=== PATIENT | female | born 1980 | race African-American/Black ===

== ENCOUNTER 2017-01-25 14:35 | Emergency (ER) | payer OTHER, MEDICAID ==
--- NOTE | 2017-01-25 16:06 | ER Document Report ---
ED General - General Chief Complaint: Numbness of Arm Stated Complaint: ARM NUMBNESS,BACK PAIN Mode of Arrival: Ambulatory Information source: Patient Notes: 36-year-old female presents with daughter with complaints of neck pain low back pain left shoulder pain and numbness down the left arm and left leg. Patient denies any weakness. She has a history of arthritis which irritates her back. Patient denies any cauda equina concerns otherwise. Patient notes symptoms have been ongoing for 3 days TRAVEL OUTSIDE OF THE [place] IN LAST 30 DAYS: No - HPI Onset: Other - 3 days Onset/Duration: Persistent Quality of pain: Achy Severity: Mild Pain Level: 1 Associated symptoms: Chest pain Exacerbated by: Denies Relieved by: Denies Similar symptoms previously: Yes Recently seen / treated by doctor: Yes - Related Data Allergies/Adverse Reactions: wheat [Wheat] Allergy (Intermediate, Verified 06/22/15 15:13) GI upset morphine [Morphine] Allergy (Verified 06/22/15 15:13) milk [Milk] Adverse Reaction (Verified 06/22/15 15:13) Past Medical History - Social History Smoking Status: Never Smoker Cigarette use (# per day): No Chew tobacco use (# tins/day): No Smoking Education Provided: No Family History: Reviewed & Not Pertinent, Arthritis, CAD, CVA, DM, Hyperlipidemia, Hypertension, Malignancy, Thyroid Disfunction Patient has suicidal ideation: No Patient has homicidal ideation: No - Past Medical History Cardiac Medical History: Denies: Hx DVT, Hx Hypertension Pulmonary Medical History: Denies: Hx COPD, Hx Tuberculosis Neurological Medical History: Reports: Hx Migraine. Denies: Hx Seizures Endocrine Medical History: Denies: Hx Diabetes Mellitus Type 1, Hx Diabetes Mellitus Type 2, Hx Hyperthyroidism Renal/ Medical History: Reports: Hx Kidney Stones. Denies: Hx Ovarian Cysts, Hx Peritoneal Dialysis, Hx Pelvic Inflammatory Disease GI Medical History: Reports: Hx Crohn's Disease - Strictures, Hx Gastroesophageal Reflux Disease Musculoskeltal Medical History: Reports Hx Arthritis - Rheumatoid, Reports Hx Fibromyalgia Skin Medical History: Reports Hx MRSA Psychiatric Medical History: Reports: Hx Depression Past Surgical History: Reports: Hx Cholecystectomy, Hx Orthopedic Surgery - Right knee. Denies: Hx Hysterectomy, Hx Pacemaker - Immunizations Immunizations up to date: Yes Hx Diphtheria, Pertussis, Tetanus Vaccination: Yes Review of Systems - Review of Systems Notes: REVIEW OF SYSTEMS: CONSTITUTIONAL : Denies fever, chills, or sweats. Denies recent illness. EENT: Denies eye, ear, throat, or mouth pain or symptoms. Denies nasal or sinus congestion or discharge. Denies throat, tongue, or mouth swelling or difficulty swallowing. CARDIOVASCULAR: Denies chest pain. Denies palpitations or racing or irregular heart beat. Denies ankle edema. RESPIRATORY: Denies cough, cold, or chest congestion. Denies shortness of breath, difficulty breathing, or wheezing. GASTROINTESTINAL: Denies abdominal pain or distention. Denies nausea, vomiting , or diarrhea. Denies blood in vomitus, stools, or per rectum. Denies black, tarry stools. Denies constipation. GENITOURINARY: Denies difficulty urinating, painful urination, burning, frequency, blood in urine, or discharge. FEMALE GENITOURINARY: Denies vaginal bleeding, heavy or abnormal periods, irregular periods. Denies vaginal discharge or odor. MUSCULOSKELETAL: Admits to neck pain left arm numbness low back pain left leg numbness SKIN: Denies rash, lesions or sores. HEMATOLOGIC : Denies easy bruising or bleeding. LYMPHATIC: Denies swollen, enlarged glands. NEUROLOGICAL: Subjective paresthesia PSYCHIATRIC: Denies anxiety or stress. Denies depression, suicidal ideation, or homicidal ideation. ALL OTHER SYSTEMS REVIEWED AND NEGATIVE. Dictation was performed using [employer] voice recognition software PHYSICAL EXAMINATION: GENERAL: Well-appearing, well-nourished and in no acute distress. HEAD: Atraumatic, normocephalic. EYES: Pupils equal round and reactive to light, extraocular movements intact, conjunctiva are normal. ENT: Nares patent, oropharynx clear without exudates. Moist mucous membranes. NECK: Normal range of motion, supple without lymphadenopathy LUNGS: Breath sounds clear to auscultation bilaterally and equal. No wheezes rales or rhonchi. HEART: Regular rate and rhythm without murmurs ABDOMEN: Soft, nontender, nondistended abdomen. No guarding, no rebound. No masses appreciated. Female : deferred Musculoskeletal: Normal range of motion, no pitting or edema. No cyanosis. NEUROLOGICAL: Cranial nerves grossly intact. Normal speech, normal gait. Normal sensory, motor exams except for subjective paresthesia PSYCH: Normal mood, normal affect. SKIN: Warm, Dry, normal turgor, no rashes or lesions noted. Course - Re-evaluation Re-evalutation: 01/25/17 16:09 Patient has no cauda equina concerns, she has no signs of mass or IV drug use, I believe the patient's symptoms may be secondary to nerve impingement given her history of arthritis 01/25/17 17:09 EKG noted no significant abnormality, I have very low suspicion for cauda equina or any life-threatening issues. Patient will be started on steroids otherwise well-appearing no distress patient to follow-up with her own primary care physician for further evaluation and care After performing a Medical Screening Examination, I estimate there is LOW risk for EXPANDING OR RUPTURED ABDOMINAL AORTIC ANEURYSM, CAUDA EQUINA SYNDROME, EPIDURAL MASS LESION, or HERNIATED DISK CAUSING SEVERE SPINAL STENOSIS, thus I consider the discharge disposition reasonable. I have reevaluated this patient multiple times and no significant life threatening changes are noted. The patient and I have discussed the diagnosis and risks, and we agree with discharging home and close follow-up. We also discussed returning to the Emergency Department immediately if new or worsening symptoms occur with the understanding that symptoms and presentations can change. We have discussed the symptoms which are most concerning (e.g., saddle anesthesia, urinary or bowel incontinence or retention, changing or worsening pain) that necessitate immediate return. Discharge - Discharge Clinical Impression: Paresthesia, Arthritis Condition: Stable Disposition: HOME, SELF-CARE Instructions: Numbness or Paresthesia ([facility]) Prescriptions: Prednisone [Deltasone 20 mg Tablet] 3 tab PO DAILY 5 Days Referrals: GILL ARRIAZA MD [ACTIVE STAFF] - Follow up tomorrow
[2017-01-25 17:25] VITALS: BP 112/74
--- NOTE | 2017-01-25 21:39 | EKG REPORT ---
SEVERITY:- BORDERLINE ECG - SINUS RHYTHM BORDERLINE T ABNORMALITIES, ANTERIOR LEADS : Confirmed by: Kel Abbasi 25-Jan-2017 21:38:19
== END 2017-01-25 17:24 | disposition home or self-care (01) ==
LOC: ER 14:35
DX: R20.0 Anesthesia of skin (principal); M19.90 Unspecified osteoarthritis, unspecified site; M54.2 Cervicalgia; M54.5 Low back pain; M25.512 Pain in left shoulder; Z88.6 Allergy status to analgesic agent; Z91.011 Allergy to milk products; Z87.442 Personal history of urinary calculi; Z90.49 Acquired absence of other specified parts of digestive tract; Z86.14 Personal history of Methicillin resistant Staphylococcus aureus infection
CPT/HCPCS: 93005; 93010; 99284

== ENCOUNTER 2017-09-27 07:16 | Emergency (ER) | payer MEDICAID, OTHER ==
[2017-09-27] MEDS ORDERED: NORMAL SALINE 1000 ML 1,000 ML IV ONE (07:40)
--- NOTE | 2017-09-27 07:40 | ER Document Report ---
ED GI/ - General Chief Complaint: Nausea/Vomiting Stated Complaint: VOMITING, ABDOMINAL/BACK PAIN Time Seen by Provider: 09/27/17 07:39 Mode of Arrival: Ambulatory Information source: Patient Notes: 37 yo female c/o epigastric abdominal pain that radiates through to the back and nausea since yesterday. She had dull all day until 10:00 last night became more for severe and at 4 AM she could not stand it anymore. She has a history of Crohn's , cholecystectomy, kidney stones. No fever, no diarrhea. No hx pancreatitis. No blood or black in bowel movements. TRAVEL OUTSIDE OF THE [place] IN LAST 30 DAYS: No - Related Data Allergies/Adverse Reactions: wheat [Wheat] Allergy (Intermediate, Verified 09/27/17 07:19) GI upset morphine [Morphine] Allergy (Verified 09/27/17 07:19) milk [Milk] Adverse Reaction (Verified 09/27/17 07:19) Past Medical History - General Information source: Patient - Social History Smoking Status: Unknown if Ever Smoked Frequency of alcohol use: None Drug Abuse: None Lives with: Family Family History: Reviewed & Not Pertinent, Arthritis, CAD, CVA, DM, Hyperlipidemia, Hypertension, Malignancy, Thyroid Disfunction Neurological Medical History: Reports: Hx Migraine Renal/ Medical History: Reports: Hx Kidney Stones GI Medical History: Reports: Hx Crohn's Disease - Strictures, Hx Gastroesophageal Reflux Disease Musculoskeltal Medical History: Reports Hx Arthritis - Rheumatoid, Reports Hx Fibromyalgia Skin Medical History: Reports Hx MRSA Psychiatric Medical History: Reports: Hx Depression Past Surgical History: Reports: Hx Cholecystectomy, Hx Orthopedic Surgery - Right knee. Denies: Hx Hysterectomy, Hx Pacemaker - Immunizations Immunizations up to date: Yes Hx Diphtheria, Pertussis, Tetanus Vaccination: Yes Review of Systems - Review of Systems Constitutional: No symptoms reported EENT: No symptoms reported Cardiovascular: No symptoms reported Respiratory: No symptoms reported Gastrointestinal: See HPI Genitourinary: No symptoms reported Female Genitourinary: No symptoms reported Musculoskeletal: No symptoms reported Skin: No symptoms reported Hematologic/Lymphatic: No symptoms reported Neurological/Psychological: No symptoms reported Physical Exam - Vital signs Vitals: Temp Pulse Resp BP Pulse Ox 98.6 F 76 18 118/68 99 09/27/17 07:22 09/27/17 07:22 09/27/17 07:22 09/27/17 07:22 09/27/17 07:22 Interpretation: Normal - General General appearance: Appears well, Alert - HEENT Head: Normocephalic, Atraumatic Eyes: Normal Pupils: PERRL - Respiratory Respiratory status: No respiratory distress Chest status: Nontender Breath sounds: Normal Chest palpation: Normal - Cardiovascular Rhythm: Regular Heart sounds: Normal auscultation Murmur: No - Abdominal Inspection: Normal Distension: No distension Bowel sounds: Normal Tenderness: Tender - Epigastrium mid left upper quadrant Organomegaly: No organomegaly - Back Back: Normal, Nontender - Extremities General upper extremity: Normal inspection, Nontender, Normal color, Normal ROM , Normal temperature General lower extremity: Normal inspection, Nontender, Normal color, Normal ROM , Normal temperature, Normal weight bearing. No: Kaushik's sign - Neurological Neuro grossly intact: Yes Cognition: Normal Orientation: AAOx4 [place] Coma Scale Eye Opening: Spontaneous Ericka Coma Scale Verbal: Oriented Ericka Coma Scale Motor: Obeys Commands [place] Coma Scale Total: 15 Speech: Normal Motor strength normal: LUE, RUE, LLE, RLE Sensory: Normal - Psychological Associated symptoms: Normal affect, Normal mood - Skin Skin Temperature: Warm Skin Moisture: Dry Skin Color: Normal Course - Re-evaluation Re-evalutation: 09/27/17 09:09 Zofran 8 mg ODT and GI cocktail given because of where she is tender. Difficulty finding IV, patient states she usually has to get a neck IV. The labs are normal including a lipase so we will get her to drink oral fluids should be able to go home. 09/27/17 09:29 Stomach feels bubbly now she has not had any vomiting here. IV inserted 09/27/17 10:17 Patient is reluctant to go home because she states she still has upper abdominal pain she has been up to the bathroom several times her IV has infused she states that Zofran does not work she wants a prescription for Phenergan and I advised her that the pharmacies are not open at this time but she says "it is what it is" and she will go home. - Vital Signs Vital signs: Temp Pulse Resp BP Pulse Ox 98.6 F 76 18 118/68 99 09/27/17 07:22 09/27/17 07:22 09/27/17 07:22 09/27/17 07:22 09/27/17 07:22 - Laboratory Result Diagrams: 09/27/17 07:50 09/27/17 07:50 Laboratory results interpreted by me: 09/27/17 09/27/17 09/27/17 07:50 07:50 08:40 Hgb 11.7 L Hct 35.5 L Seg Neutrophils % 84.2 H Lymphocytes % 10.6 L Absolute Neutrophils 8.6 H BUN 6 L Glucose 117 H Urine Urobilinogen 2.0 H Discharge - Discharge Clinical Impression: Epigastric abdominal pain, Nausea Condition: Good Disposition: HOME, SELF-CARE Instructions: Acid-Suppressing Medication ([facility]), Evaluation of Upper Abdominal Pain ([facility]), Antinausea Medication ([facility]) Additional Instructions: Drink plenty of fluids to remain hydrated today and advance diet as tolerated [id number] Tums Return to the emergency room for worsening pain, fever, vomiting or diarrhea. Prescriptions: Promethazine HCl [Phenergan 25 mg Tablet] 25 mg PO Q4HP PRN #20 tablet PRN Reason: Famotidine [Pepcid 40 mg Tablet] 40 mg PO DAILY #30 tablet Referrals: ARIEL MORTON MD [ACTIVE STAFF] - Follow up as needed
[2017-09-27 08:07] LABS: ABSOLUTE BASOPHILS # (AUTO) 0.1 10^3/uL (0.0-0.2); ABSOLUTE LYMPHOCYTES (AUTO) 1.1 10^3/uL (0.5-4.7); ABSOLUTE MONOCYTES (AUTO) 0.5 10^3/uL (0.1-1.4); ABSOLUTE NEUT (AUTO) 8.6 10^3/uL (1.7-8.2); BASOPHILS % (AUTO) 0.5 % (0-2); EOSINOPHILS % (AUTO) 0.2 % (0-6); HEMATOCRIT 35.5 % (36.0-47.0); HEMOGLOBIN 11.7 g/dL (12.0-15.5); HGB HCT DIFFERENCE -0.4; LYMPHOCYTES % (AUTO) 10.6 % (13-45); MEAN CORPUSCULAR HEMOGLOBIN 28.1 pg (27.0-33.4); MEAN CORPUSCULAR HGB CONC 33.1 g/dL (32.0-36.0); MEAN CORPUSCULAR VOLUME 85 fl (80-97); MONOCYTES % (AUTO) 4.5 % (3-13); RED BLOOD COUNT 4.19 10^6/uL (3.72-5.28); RED CELL DISTRIBUTION WIDTH 13.5 % (11.5-14.0); SEGMENTED NEUTROPHILS % (AUTO) 84.2 % (42-78); WHITE BLOOD COUNT 10.2 10^3/uL (4.0-10.5)
[2017-09-27] MEDS ORDERED: ONDANSETRON HCL INJ/PF 4 MG/2 ML SDV IV ONE (08:14)
[2017-09-27] MEDS ORDERED: HYDROMORPHONE HCL INJ/PF 2 MG/ML AMPULE IV ONE (08:21)
[2017-09-27 08:27] LABS: ALANINE AMINOTRANSFERASE 23 U/L (9-52); ALBUMIN 4.1 g/dL (3.5-5.0); ALKALINE PHOSPHATASE 67 U/L (38-126); ANION GAP 9 (5-19); ASPARTATE AMINO TRANSFERASE 25 U/L (14-36); BILIRUBIN,DIRECT 0.3 mg/dL (0.0-0.4); BILIRUBIN,TOTAL 0.5 mg/dL (0.2-1.3); BLOOD UREA NITROGEN 6 mg/dL (7-20); CALCIUM 9.9 mg/dL (8.4-10.2); CARBON DIOXIDE 27 mmol/L (22-30); CHLORIDE 104 mmol/L (98-107); CREATININE RESULT 0.76 mg/dL (0.52-1.25); GLUCOSE 117 mg/dL (75-110); LIPASE 39.1 U/L (23-300); POTASSIUM 4.5 mmol/L (3.6-5.0); SODIUM 139.6 mmol/L (137-145); TOTAL PROTEIN 7.1 g/dL (6.3-8.2)
[2017-09-27] MEDS ORDERED: MAG HYDROX/AL HYDROX/SIMETH SUSP 30 ML UDCUP ONE (08:57)
[2017-09-27] MEDS ORDERED: METOCLOPRAMIDE HCL ORAL SOLN 10 MG/10 ML UDCUP PO ONE (08:58)
[2017-09-27] MEDS ORDERED: LIDOCAINE 2% VISCOUS SOLN 20 ML UDCUP PO ONE (08:59)
[2017-09-27] MEDS ORDERED: ONDANSETRON 4 MG TAB.RAPDIS ONE (09:06)
[2017-09-27] MEDS ORDERED: LANSOPRAZOLE 30 MG TAB.RAP.DR PO ONE (09:10)
[2017-09-27] MEDS ORDERED: FAMOTIDINE 20 MG TABLET PO ONE (09:10)
[2017-09-27] MEDS ORDERED: MAG HYDROX/AL HYDROX/SIMETH SUSP 30 ML UDCUP PO ONE (09:30)
[2017-09-27] MEDS ORDERED: ONDANSETRON 4 MG TAB.RAPDIS PO ONE (09:36)
[2017-09-27 09:46] LABS: APPEARANCE,URINE SLIGHTLY-CLOUDY; BILIRUBIN,URINE NEGATIVE (NEGATIVE); GLUCOSE, URINE NEGATIVE (NEGATIVE); KETONES,URINE NEGATIVE (NEGATIVE); LEUKOCYTE ESTERASE,URINE NEGATIVE (NEGATIVE); NITRITE,URINE NEGATIVE (NEGATIVE); PROTEIN,URINE NEGATIVE (NEGATIVE)
[2017-09-27 10:37] VITALS: BP 115/65
== END 2017-09-27 10:40 | disposition home or self-care (01) ==
LOC: ER 07:16
DX: R10.13 Epigastric pain (principal); R11.2 Nausea with vomiting, unspecified; Z87.442 Personal history of urinary calculi; Z87.19 Personal history of other diseases of the digestive system; Z90.49 Acquired absence of other specified parts of digestive tract; Z91.018 Allergy to other foods; Z91.011 Allergy to milk products; Z88.5 Allergy status to narcotic agent; Z86.14 Personal history of Methicillin resistant Staphylococcus aureus infection
CPT/HCPCS: 99283; 96361; 96374; 96375; 36415; 87086; 83690; 84703; 85025; 80053; 81001; S0119; J3490; J1170; J2405; J7030

== ENCOUNTER 2018-03-08 19:00 | Emergency (ER) | payer MEDICAID, OTHER ==
--- NOTE | 2018-03-08 19:44 | ER Document Report ---
ED General - General Chief Complaint: Leg Swelling Stated Complaint: LEG PAIN, SWELLING Time Seen by Provider: 03/08/18 19:22 Mode of Arrival: Ambulatory Information source: Patient Notes: 37-year-old female patient presents with complaints of pain and swelling to her left lower extremity. Patient reports that she has not had any trauma to the area. Patient also reports that she has been getting a lot of cramps in both of her legs. Today patient felt dizzy while she was out shopping. Patient has past medical history of fibromyalgia, Crohn's and rheumatoid arthritis. Patient is a non-smoker, does not take any control pills (HAS A MIRENA) has had no recent surgery and has had no recent travel. TRAVEL OUTSIDE OF THE [place] IN LAST 30 DAYS: No - Related Data Allergies/Adverse Reactions: wheat [Wheat] Allergy (Intermediate, Verified 09/27/17 07:19) GI upset morphine [Morphine] Allergy (Verified 09/27/17 07:19) milk [Milk] Adverse Reaction (Verified 09/27/17 07:19) Past Medical History - General Information source: Patient - Social History Smoking Status: Never Smoker Frequency of alcohol use: None Drug Abuse: None - In February Family History: Reviewed & Not Pertinent, Arthritis, CAD, CVA, DM, Hyperlipidemia, Hypertension, Malignancy, Thyroid Disfunction Patient has suicidal ideation: No Patient has homicidal ideation: No - Past Medical History Cardiac Medical History: Denies: Hx DVT, Hx Hypertension Pulmonary Medical History: Denies: Hx COPD, Hx Tuberculosis Neurological Medical History: Reports: Hx Migraine. Denies: Hx Seizures Endocrine Medical History: Denies: Hx Diabetes Mellitus Type 1, Hx Diabetes Mellitus Type 2, Hx Hyperthyroidism Renal/ Medical History: Reports: Hx Kidney Stones. Denies: Hx Ovarian Cysts, Hx Peritoneal Dialysis, Hx Pelvic Inflammatory Disease GI Medical History: Reports: Hx Crohn's Disease - Strictures, Hx Gastroesophageal Reflux Disease Musculoskeltal Medical History: Reports Hx Arthritis - Rheumatoid, Reports Hx Fibromyalgia Skin Medical History: Reports Hx MRSA Psychiatric Medical History: Reports: Hx Depression Past Surgical History: Reports: Hx Cholecystectomy, Hx Orthopedic Surgery - Right knee. Denies: Hx Hysterectomy, Hx Pacemaker - Immunizations Immunizations up to date: Yes Hx Diphtheria, Pertussis, Tetanus Vaccination: Yes Review of Systems - Review of Systems Constitutional: See HPI EENT: No symptoms reported Cardiovascular: No symptoms reported Respiratory: No symptoms reported Gastrointestinal: No symptoms reported Genitourinary: No symptoms reported Female Genitourinary: No symptoms reported Musculoskeletal: See HPI Skin: No symptoms reported Hematologic/Lymphatic: No symptoms reported Neurological/Psychological: No symptoms reported Physical Exam - Vital signs Vitals: Temp Pulse Resp BP Pulse Ox 99.5 F 88 20 123/72 100 03/08/18 19:09 03/08/18 19:09 03/08/18 19:09 03/08/18 19:09 03/08/18 19:09 - Notes Notes: PHYSICAL EXAMINATION: GENERAL: Well-appearing, well-nourished and in no acute distress. HEAD: Atraumatic, normocephalic. EYES: Pupils equal round and reactive to light, extraocular movements intact, conjunctiva are normal. ENT: Nares patent, oropharynx clear without exudates. Moist mucous membranes. NECK: Normal range of motion, supple without lymphadenopathy LUNGS: Breath sounds clear to auscultation bilaterally and equal. No wheezes rales or rhonchi. HEART: Regular rate and rhythm without murmurs ABDOMEN: Soft, nontender, nondistended abdomen. No guarding, no rebound. No masses appreciated. Female : deferred Musculoskeletal: Normal range of motion, no pitting, mild edema to LLE with two areas of ecchymosis. No cyanosis. NEUROLOGICAL: Cranial nerves grossly intact. Normal speech, normal gait. Normal sensory, motor exams PSYCH: Normal mood, normal affect. SKIN: Warm, Dry, normal turgor, no rashes or lesions noted. Course - Re-evaluation Re-evalutation: 37-year-old otherwise healthy well appearing female with normal vital signs complaining of left lower extremity cramping, pain and swelling as well as dizziness. Will draw a comprehensive metabolic panel to rule out any electrolyte abnormality that could be contributing to her leg cramps as well as a venous doppler to rule out DVT although I have a low suspicion as patient does not have any risk factors. CMP and venous doppler U/S are both unremarkable. Will d/c patient with instructions to wear compression hose and follow up with her primary. - Vital Signs Vital signs: Temp Pulse Resp BP Pulse Ox 98.9 F 71 16 107/64 100 03/08/18 21:44 03/08/18 21:44 06/05/18 21:44 03/08/18 21:44 03/08/18 21:44 - Laboratory Result Diagrams: 03/08/18 20:25 Laboratory results interpreted by me: 03/08/18 20:25 BUN 6 L Discharge - Discharge Clinical Impression: Varicose vein of leg Condition: Stable Disposition: HOME, SELF-CARE Additional Instructions: Varicose Veins You have varicose veins. These are veins that bulge out under the skin. They develop when the valves in the veins fail. These valves normally keep blood moving upstream towards the heart. Without the valves, the pressure of the blood expands and weakens the veins. Varicose veins may simply be unsightly. But often they cause aching pains in the legs, especially after standing. There may be itching and irritation. Occasionally a vein may become clotted, with redness, tenderness, and swelling. Elevate your legs periodically during the day. Support hose can help. Don' t rub or scratch at bulging veins -- this makes them worse. Don't sit with your legs crossed. Avoid standing in one place for more than a few minutes. Walking reduces the pressure in the veins. If varicose veins continue to cause severe symptoms, an operation to remove them ("vein stripping") might help. Call the doctor or return if there is increased swelling, redness, or fever , if there is general leg pain, or if a varicose veins bleeds and won't stop after 15 minutes of direct pressure. Referrals: RENETTA MAGANA MD [Primary Care Provider] - Follow up as needed
[2018-03-08 21:08] LABS: ALANINE AMINOTRANSFERASE 21 U/L (9-52); ALBUMIN 3.6 g/dL (3.5-5.0); ALKALINE PHOSPHATASE 58 U/L (38-126); ANION GAP 8 (5-19); ASPARTATE AMINO TRANSFERASE 22 U/L (14-36); BILIRUBIN,DIRECT 0.3 mg/dL (0.0-0.4); BILIRUBIN,TOTAL 0.3 mg/dL (0.2-1.3); BLOOD UREA NITROGEN 6 mg/dL (7-20); CALCIUM 9.3 mg/dL (8.4-10.2); CARBON DIOXIDE 30 mmol/L (22-30); CHLORIDE 102 mmol/L (98-107); GLUCOSE 89 mg/dL (75-110); POTASSIUM 4.4 mmol/L (3.6-5.0); TOTAL PROTEIN 6.7 g/dL (6.3-8.2)
[2018-03-08 21:46] VITALS: BP 107/64
--- NOTE | 2018-03-09 07:05 | XCELERA REPORT ---
[address] [address] Lower Extremity Venous Evaluation Name: CINDY BRAY Age: 37 yrs Gender: Female : 1980 Patient Status: Emergency Patient Location: ER Study Date: 03/08/2018 08:47 PM Procedure: Color flow and duplex imaging of the veins of the left lower extremity as well as the right Common Femoral vein. Reason For Study: LLE swelling and pain Ordering Physician: OLIVE REY Performed By: Maryam Velarde Right Sided Venous Evaluation The right common femoral vein is fully compressible. Spontaneous and phasic flow is present in the right common femoral vein. Left Sided Venous Evaluation Normal vessel filling wall to wall, compression and augmentation as well as Colour flow down to the infrageniculate veins. Interpretation Summary No duplex evidence of DVT or obstruction in the left lower extremity nor in the right Common Femoral vein. : OLIVE RYE > Antoine Farley
== END 2018-03-08 21:44 | disposition home or self-care (01) ==
LOC: ER 19:00
DX: I83.812 Varicose veins of left lower extremity with pain (principal); R25.2 Cramp and spasm; R42 Dizziness and giddiness; Z97.5 Presence of (intrauterine) contraceptive device; Z91.018 Allergy to other foods; Z88.5 Allergy status to narcotic agent
CPT/HCPCS: 36415; 80053; 93971; 99284

== ENCOUNTER 2018-08-15 17:14 | Emergency (ER) | payer MEDICAID ==
[2018-08-15] MEDS ORDERED: DIAZEPAM 5 MG TABLET PO ONE (19:13)
[2018-08-15] MEDS ORDERED: LIDOCAINE 5% (700 MG) TRANSDERMAL ADH..PATCH TP ONE (19:13)
[2018-08-15] MEDS ORDERED: DEXAMETHASONE SOD PHOS INJ 10 MG/1 ML VIAL IM ONE (19:13)
[2018-08-15] MEDS ORDERED: KETOROLAC TROMETHAMINE 60 MG/2 ML SDV IM ONE (19:13)
[2018-08-15 19:59] LABS: APPEARANCE,URINE SLIGHTLY-CLOUDY; BILIRUBIN,URINE NEGATIVE (NEGATIVE); COLOR,URINE YELLOW; GLUCOSE, URINE NEGATIVE (NEGATIVE); KETONES,URINE NEGATIVE (NEGATIVE); LEUKOCYTE ESTERASE,URINE NEGATIVE (NEGATIVE); NITRITE,URINE NEGATIVE (NEGATIVE); PROTEIN,URINE NEGATIVE (NEGATIVE); URINE SPECIFIC GRAVITY 1.017; UROBILINOGEN,URINE NEGATIVE mg/dL (<2.0)
--- NOTE | 2018-08-15 20:37 | ER Document Report ---
HPI - HPI Pain Level: 5 Notes: Patient is a 38-year-old female who presents with chief complaint of neck and back pain that is been going on for 2 days. Patient reports she has been doing increased activity and heavy lifting lately. Patient thinks she may have strained a muscle. Patient denies any fever. Denies any bowel incontinence, states she is able to urinate without difficulty. - NEURO Neurology: REPORTS: Headache - REPRODUCTIVE Reproductive: DENIES: : Past Medical History - General Information source: Patient - Social History Smoking Status: Never Smoker Chew tobacco use (# tins/day): No Frequency of alcohol use: None Drug Abuse: None Family History: Reviewed & Not Pertinent, Arthritis, CAD, CVA, DM, Hyperlipidemia, Hypertension, Malignancy, Thyroid Disfunction Patient has suicidal ideation: No Patient has homicidal ideation: No - Past Medical History Cardiac Medical History: Denies: Hx DVT, Hx Hypertension Pulmonary Medical History: Denies: Hx COPD, Hx Tuberculosis Neurological Medical History: Reports: Hx Migraine. Denies: Hx Seizures Endocrine Medical History: Denies: Hx Diabetes Mellitus Type 1, Hx Diabetes Mellitus Type 2, Hx Hyperthyroidism Renal/ Medical History: Reports: Hx Kidney Stones. Denies: Hx Ovarian Cysts, Hx Peritoneal Dialysis, Hx Pelvic Inflammatory Disease GI Medical History: Reports: Hx Crohn's Disease - Strictures, Hx Gastroesophageal Reflux Disease Musculoskeletal Medical History: Reports Hx Arthritis - Rheumatoid, Reports Hx Fibromyalgia Skin Medical History: Reports Hx MRSA Psychiatric Medical History: Reports: Hx Depression Past Surgical History: Reports: Hx Cholecystectomy, Hx Orthopedic Surgery - Right knee. Denies: Hx Hysterectomy, Hx Pacemaker - Immunizations Immunizations up to date: Yes Hx Diphtheria, Pertussis, Tetanus Vaccination: Yes Vertical Provider Document - CONSTITUTIONAL Notes: PHYSICAL EXAMINATION: GENERAL: Well-appearing, well-nourished and in no acute distress. HEAD: Atraumatic, normocephalic. EYES: Pupils equal round extraocular movements intact, conjunctiva are normal. ENT: Nares patent NECK: Normal range of motion LUNGS: No respiratory distress Musculoskeletal: Normal range of motion, tenderness to palpation to right lumbar paraspinous muscles as well as pain over the right scapula. NEUROLOGICAL: Normal speech, normal gait. PSYCH: Normal mood, normal affect. SKIN: Warm, Dry, normal turgor, no rashes or lesions noted. - INFECTION CONTROL TRAVEL OUTSIDE OF THE [place] IN LAST 30 DAYS: No Course - Re-evaluation Re-evalutation: Patient's examination and history are most consistent with musculoskeletal strain. Patient will be treated symptomatically discharged in stable condition. - Vital Signs Vital signs: Temp Pulse Resp BP Pulse Ox 98.3 F 73 18 117/71 100 08/15/18 17:32 08/15/18 17:32 08/15/18 17:32 08/15/18 17:32 08/15/18 17:32 Discharge - Discharge Clinical Impression: Neck pain, Musculoskeletal pain Condition: Stable Disposition: HOME, SELF-CARE Additional Instructions: Believe your pain is most likely being caused by a musculoskeletal strain. Please take the medications as prescribed. You should also take some ibuprofen 600 mg every 6 hours. This will help with not only pain but inflammation. Call your orthopedic doctor who does her trigger point injections tomorrow morning to try to get your appointment changed. Return to the emergency department immediately if you develop any bowel incontinence, you are unable to urinate, you have numbness and tingling in both her legs or unable to walk or you develop a fever. Prescriptions: Cyclobenzaprine HCl [Flexeril 10 mg Tablet] 10 mg PO TIDP PRN #15 tab PRN Reason: Lidocaine [Lidoderm 5% (700 mg) Transdermal Patch] 1 patch TP DAILY #30 adh..patch Referrals: RENETTA MAGANA MD [Primary Care Provider] - Follow up as needed
[2018-08-15 20:50] VITALS: BP 109/62
== END 2018-08-15 20:49 | disposition home or self-care (01) ==
LOC: ER 17:14
DX: M54.2 Cervicalgia (principal); M79.10 Myalgia, unspecified site; M54.9 Dorsalgia, unspecified; Z87.442 Personal history of urinary calculi; Z86.14 Personal history of Methicillin resistant Staphylococcus aureus infection; Z90.49 Acquired absence of other specified parts of digestive tract
CPT/HCPCS: 99283; 96372; 81001; J3490 ×2; J1885; J1100

== ENCOUNTER 2018-10-26 10:06 | Emergency (ER) | payer MEDICAID ==
[2018-10-26 10:12] VITALS: BP 116/72
--- NOTE | 2018-10-26 10:34 | ER Document Report ---
ED Medical Screen (RME) - General Chief Complaint: Numbness Stated Complaint: WEAKNESS Time Seen by Provider: 10/26/18 10:28 Primary Care Provider: RENETTA MAGANA MD [Primary Care Provider] - Follow up as needed Notes: 38-year-old female patient with a several day history of multiple complaints including right-sided numbness, right-sided weakness, tired, weak, right side pain, dizzy, nausea, hair falling out. Patient has a boot she has been documenting all her symptoms and. I have greeted and performed a rapid initial assessment of this patient. A comprehensive ED assessment and evaluation of the patient, analysis of test results and completion of the medical decision making process will be conducted by additional ED providers. TRAVEL OUTSIDE OF THE [place] IN LAST 30 DAYS: No - Related Data Allergies/Adverse Reactions: wheat [Wheat] Allergy (Intermediate, Verified 10/26/18 10:09) GI upset morphine [Morphine] Allergy (Verified 10/26/18 10:09) milk [Milk] Adverse Reaction (Verified 10/26/18 10:09) Past Medical History - Social History Family history: None - Past Medical History Cardiac Medical History: Denies: Hx DVT, Hx Hypertension Pulmonary Medical History: Denies: Hx COPD, Hx Tuberculosis Neurological Medical History: Reports: Hx Migraine. Denies: Hx Seizures Endocrine Medical History: Denies: Hx Diabetes Mellitus Type 1, Hx Diabetes Mellitus Type 2, Hx Hyperthyroidism Renal/ Medical History: Reports: Hx Kidney Stones. Denies: Hx Ovarian Cysts, Hx Peritoneal Dialysis, Hx Pelvic Inflammatory Disease GI Medical History: Reports: Hx Crohn's Disease - Strictures, Hx Gastroesophageal Reflux Disease Musculoskeltal Medical History: Reports Hx Arthritis - Rheumatoid, Reports Hx Fibromyalgia Skin Medical History: Reports Hx MRSA Psychiatric Medical History: Reports: Hx Depression Past Surgical History: Reports: Hx Cholecystectomy, Hx Orthopedic Surgery - Right knee. Denies: Hx Hysterectomy, Hx Pacemaker - Immunizations Immunizations up to date: Yes Hx Diphtheria, Pertussis, Tetanus Vaccination: Yes Physical Exam - Vital signs Vitals: Temp Pulse Resp BP Pulse Ox 98.6 F 84 20 116/72 99 10/26/18 10:11 10/26/18 10:11 10/26/18 10:11 10/26/18 10:11 10/26/18 10:11 Course - Vital Signs Vital signs: Temp Pulse Resp BP Pulse Ox 98.6 F 84 20 116/72 99 10/26/18 10:11 10/26/18 10:11 10/26/18 10:11 10/26/18 10:11 10/26/18 10:11 Doctor's Discharge - Discharge Referrals: RENETTA MAGANA MD [Primary Care Provider] - Follow up as needed
[2018-10-26 11:20] LABS: APPEARANCE,URINE SLIGHTLY-CLOUDY; BILIRUBIN,URINE NEGATIVE (NEGATIVE); COLOR,URINE YELLOW; GLUCOSE, URINE NEGATIVE (NEGATIVE); KETONES,URINE NEGATIVE (NEGATIVE); LEUKOCYTE ESTERASE,URINE NEGATIVE (NEGATIVE); NITRITE,URINE NEGATIVE (NEGATIVE); PROTEIN,URINE NEGATIVE (NEGATIVE); URINE SPECIFIC GRAVITY 1.014; UROBILINOGEN,URINE NEGATIVE mg/dL (<2.0)
[2018-10-26] MEDS ORDERED: NORMAL SALINE 1000 ML 1,000 ML IV ONE (12:47)
[2018-10-26] MEDS ORDERED: PROCHLORPERAZINE EDISYLATE INJ 10 MG/2 ML VIAL IV ONE (12:48)
[2018-10-26] MEDS ORDERED: DIPHENHYDRAMINE HCL 50 MG/ML VIAL IV ONE (12:48)
[2018-10-26] MEDS ORDERED: METHYLPREDNISOLONE INJ 125 MG/2 ML SDV IV ONE (12:48)
--- NOTE | 2018-10-26 12:54 | ER Document Report ---
ED General - General Chief Complaint: Numbness Stated Complaint: WEAKNESS Time Seen by Provider: 10/26/18 10:28 Primary Care Provider: RENETTA MAGANA MD [Primary Care Provider] - Follow up as needed TRAVEL OUTSIDE OF THE [place] IN LAST 30 DAYS: No - HPI Notes: Patient is a 38-year-old female with a history of rheumatoid arthritis, fibromyalgia, migraines, Crohn's who presents to the emergency department complaining of right-sided numbness and tingling for 2 days there is been relatively constant and associated with muscle pain to her back and near her shoulder. Patient states that movements make her pain worse. Patient states that she has had symptoms once previously and was evaluated in the ER at that time. She was at her family doctor this morning who told her to come the emergency department for evaluation. She is able to ambulate without any difficulties. She is eating and drinking without difficulties. She is urinating normally and having normal bowel movements. Patient states that she does have an associated headache behind her right eye which is where she typically does get her migraines. No other concerns or complaints. Denies any fever, head injury, neck stiffness, changes in vision/speech/mentation/hearing, URI, sore throat, chest pain, palpitations, syncope, cough, shortness of breath, wheeze, dyspnea, abdominal pain, nausea/vomiting/diarrhea, urinary retention, dysuria, hematuria, loss of control of bowel or bladder, saddle anesthesia, muscle paralysis/weakness, or rash. - Related Data Allergies/Adverse Reactions: wheat [Wheat] Allergy (Intermediate, Verified 10/26/18 10:09) GI upset morphine [Morphine] Allergy (Verified 10/26/18 10:09) milk [Milk] Adverse Reaction (Verified 10/26/18 10:09) Past Medical History - Social History Smoking Status: Never Smoker Chew tobacco use (# tins/day): No Frequency of alcohol use: None Drug Abuse: None Family History: Reviewed & Not Pertinent, Arthritis, CAD, CVA, DM, Hyp erlipidemia, Hypertension, Malignancy, Thyroid Disfunction Patient has suicidal ideation: No Patient has homicidal ideation: No - Past Medical History Cardiac Medical History: Denies: Hx DVT, Hx Hypertension Pulmonary Medical History: Denies: Hx COPD, Hx Tuberculosis Neurological Medical History: Reports: Hx Migraine. Denies: Hx Seizures Endocrine Medical History: Denies: Hx Diabetes Mellitus Type 1, Hx Diabetes Mellitus Type 2, Hx Hyperthyroidism Renal/ Medical History: Reports: Hx Kidney Stones. Denies: Hx Ovarian Cysts, Hx Peritoneal Dialysis, Hx Pelvic Inflammatory Disease GI Medical History: Reports: Hx Crohn's Disease - Strictures, Hx Gastroesophageal Reflux Disease Musculoskeletal Medical History: Reports Hx Arthritis - Rheumatoid, Reports Hx Fibromyalgia Skin Medical History: Reports Hx MRSA Psychiatric Medical History: Reports: Hx Depression Past Surgical History: Reports: Hx Cholecystectomy, Hx Orthopedic Surgery - Right knee. Denies: Hx Hysterectomy, Hx Pacemaker - Immunizations Immunizations up to date: Yes Hx Diphtheria, Pertussis, Tetanus Vaccination: Yes Review of Systems - Review of Systems -: Yes All other systems reviewed and negative Physical Exam - Vital signs Vitals: Temp Pulse Resp BP Pulse Ox 98.6 F 84 20 116/72 99 10/26/18 10:11 10/26/18 10:11 10/26/18 10:11 10/26/18 10:11 10/26/18 10:11 - Notes Notes: PHYSICAL EXAMINATION: GENERAL: Well-appearing, well-nourished and in no acute distress. A&Ox4. Answers questions appropriately. HEAD: Atraumatic, normocephalic. Non-tender. EYES: Pupils equal round and reactive to light, extraocular movements intact, sclera anicteric, conjunctiva are normal. No nystagmus. vis johnson intact. ENT: EAC clear b/l. TM's intact b/l without erythema, fluid, or perforation. Nares patent and without discharge. oropharynx clear without exudates. No tonsilar hypertrophy or erythema. Moist mucous membranes. No sinus tenderness. NECK: Normal range of motion, supple without lymphadenopathy. No rigidity/meningismus. No midline tenderness. kernig/brudzinski neg. + reproducible tenderness to the rt trapezius mm and rt mid back. No bony tenderness. LUNGS: Breath sounds clear to auscultation bilaterally and equal. No wheezes rales or rhonchi. HEART: Regular rate and rhythm without murmurs, rubs, gallops. ABDOMEN: Soft, nontender, nondistended abdomen. No guarding, no rebound. Normal bowel sounds present. No CVA tenderness bilaterally. Musculoskeletal: Ext's b/l: FROM to passive/active. Strength 5+/5. No deficits noted. No bony tenderness of extremities. Extremities: No cyanosis, clubbing, or edema b/l. Peripheral pulses 2+. Capillary refill less than 2 seconds. NEUROLOGICAL: NIH 1 for dec sensation on the rt side. GCS 15. Cranial nerves grossly intact. Normal speech, normal gait. Reflexes 2+ b/l. WAYLON's negative. Pronator drift negative. Heel/bragg, finger/nose wnl. PSYCH: Normal mood, normal affect. SKIN: Warm, Dry, normal turgor, no rashes or lesions noted. Course - Re-evaluation Re-evalutation: 10/26/18 15:17 Patient has elected to sign out AMA requiring she does not want to wait for any further results. CT was negative. Patient is otherwise nontoxic-appearing and is tolerating p.o. without difficulty. Patient symptoms have been ongoing for 2 days and her symptoms are reproducible with palpation and movement to her right upper extremity. There is no evidence of sepsis, meningitis, or acute i ntracranial pathology at this time. I did review the risk and benefit of her leaving prematurely to completed blood work and further observation including but not limited to severe illness and/or . Patient verbalized understanding of this decision and would still like to sign out AMA. Patient advised to recheck with your PCM tomorrow and to return with any worsening/concerning symptoms as reviewed. Patient is in agreement. - Vital Signs Vital signs: Temp Pulse Resp BP Pulse Ox 98.6 F 84 20 116/72 99 10/26/18 10:11 10/26/18 10:11 10/26/18 10:11 10/26/18 10:11 10/26/18 10:11 - Laboratory Result Diagrams: 10/26/18 13:52 10/26/18 13:52 Laboratory results interpreted by me: 10/26/18 10/26/18 10:45 13:52 WBC 13.5 H Absolute Neutrophils 9.6 H ESR 30 H Urine Blood SMALL H Discharge - Discharge Clinical Impression: Numbness and tingling, Muscle pain Condition: Stable Disposition: AGAINST MEDICAL ADVICE Additional Instructions: As reviewed, you are deciding to leave AGAINST MEDICAL ADVICE. No your workup is not completely finished, but your CT scan of the head was unremarkable at this time. You are aware of the risk that your condition can change and can result in but not limited to serious illness, sepsis, and or . Do not hesitate to return for any worsening or concerning symptoms. Recheck with your PCM tomorrow. Return to the ED with any worsening symptoms and/or development of fever, headache, changes in behavior/mentation/vision/speech, chest pain, palpitations, syncope, shortness of breath, trouble breathing, abdominal pain, n/v/d, blood in stool/urine, loss of control of bowel/bladder, urinary retention, muscle weakness/paralysis, saddle anesthesia, or other worsening symptoms that are concerning to you. Referrals: RENETTA MAGANA MD [Primary Care Provider] - Follow up tomorrow
--- NOTE | 2018-10-26 13:24 | RADIOLOGY REPORT (SQ) ---
EXAM DESCRIPTION: CT HEAD WITHOUT COMPLETED DATE/TIME: 10/26/2018 12:58 pm REASON FOR STUDY: rt side numbness/tingling COMPARISON: 08/31/2015. TECHNIQUE: Axial images acquired through the brain without intravenous contrast. Images reviewed wi th bone, brain and subdural windows. Additional sagittal and coronal reconstructions were generated. Images stored on PACS. All CT scanners at this facility use dose modulation, iterative reconstruction, and/or weight based d osing when appropriate to reduce radiation dose to as low as reasonably achievable (ALARA). [facility]: Dose Right [facility]: CareDose [facility]: Dose Right [facility]: Teradose 4D [facility]: [employer] RADIATION DOSE: CT Rad equipment meets quality standard of care and radiation dose reduction techniq ues were employed. CTDIvol: 53.2 mGy. DLP: 1070 mGy-cm. mGy. LIMITATIONS: None. FINDINGS: VENTRICLES: Normal size and contour. CEREBRUM: No masses. No hemorrhage. No midline shift. No evidence for acute infarction. Normal gra y/white matter differentiation. No areas of low density in the white matter. CEREBELLUM: No masses. No hemorrhage. No alteration of density. No evidence for acute infarction. EXTRAAXIAL SPACES: No fluid collections. No masses. ORBITS AND GLOBE: No intra- or extraconal masses. Normal contour of globe without masses. CALVARIUM: No fracture. PARANASAL SINUSES: No fluid or mucosal thickening. SOFT TISSUES: No mass or hematoma. OTHER: No other significant finding. IMPRESSION: NORMAL BRAIN CT WITHOUT CONTRAST. EVIDENCE OF ACUTE STROKE: NO. COMMENT: Quality ID # 436: Final reports with documentation of one or more dose reduction techniques (e.g., Automated exposure control, adjustment of the mA and/or kV according to patient size, use of iterative reconstruction technique) TECHNICAL DOCUMENTATION: JOB ID: [id number] [employer]- All Rights Reserved Reading location - IP/workstation name: [email or web address]
[2018-10-26 14:05] LABS: ABSOLUTE BASOPHILS # (AUTO) 0.1 10^3/uL (0.0-0.2); ABSOLUTE EOSINOPHILS # (AUTO) 0.1 10^3/uL (0.0-0.6); ABSOLUTE MONOCYTES (AUTO) 0.7 10^3/uL (0.1-1.4); ABSOLUTE NEUT (AUTO) 9.6 10^3/uL (1.7-8.2); BASOPHILS % (AUTO) 0.6 % (0-2); EOSINOPHILS % (AUTO) 0.6 % (0-6); HEMATOCRIT 36.9 % (36.0-47.0); HEMOGLOBIN 12.2 g/dL (12.0-15.5); LYMPHOCYTES % (AUTO) 22.3 % (13-45); MEAN CORPUSCULAR HEMOGLOBIN 28.4 pg (27.0-33.4); MEAN CORPUSCULAR VOLUME 86 fl (80-97); MONOCYTES % (AUTO) 5.3 % (3-13); PLATELET COUNT 274 10^3/uL (150-450); RED BLOOD COUNT 4.29 10^6/uL (3.72-5.28); RED CELL DISTRIBUTION WIDTH 13.8 % (11.5-14.0); SEGMENTED NEUTROPHILS % (AUTO) 71.2 % (42-78); TOTAL CELLS COUNTED % (AUTO) 100 %; WHITE BLOOD COUNT 13.5 10^3/uL (4.0-10.5)
[2018-10-26 14:44] LABS: ERYTHROCYTE SEDIMENTATION RATE 30 mm/hr (0-20)
[2018-10-26 15:47] LABS: ALANINE AMINOTRANSFERASE 21 U/L (9-52); ALBUMIN 3.7 g/dL (3.5-5.0); ALKALINE PHOSPHATASE 64 U/L (38-126); ANION GAP 9 (5-19); ASPARTATE AMINO TRANSFERASE 16 U/L (14-36); BILIRUBIN,DIRECT 0.2 mg/dL (0.0-0.4); BILIRUBIN,TOTAL 0.4 mg/dL (0.2-1.3); BLOOD UREA NITROGEN 7 mg/dL (7-20); CALCIUM 8.8 mg/dL (8.4-10.2); CARBON DIOXIDE 29 mmol/L (22-30); CHLORIDE 104 mmol/L (98-107); CREATINE KINASE 56 U/L (30-135); GLUCOSE 127 mg/dL (75-110); TOTAL PROTEIN 6.6 g/dL (6.3-8.2)
== END 2018-10-26 15:30 | disposition left against medical advice (07) ==
LOC: ER 10:06
DX: R20.0 Anesthesia of skin (principal); M79.7 Fibromyalgia; Z90.49 Acquired absence of other specified parts of digestive tract; Z86.14 Personal history of Methicillin resistant Staphylococcus aureus infection; Z87.442 Personal history of urinary calculi; Z88.6 Allergy status to analgesic agent; Z91.011 Allergy to milk products
CPT/HCPCS: 99284; 36415; 82550; 83735; 84443; 84703; 85025; 85652; 80053; 81001; 70450; J1200; J2930; J0780; J7030

== ENCOUNTER 2018-12-19 20:32 | Emergency (ER) | payer OTHER, MEDICAID ==
[2018-12-19] MEDS ORDERED: ACETAMINOPHEN 325 MG TABLET PO ONE (21:07)
[2018-12-19] MEDS ORDERED: OXYCODONE HCL IR 5 MG TABLET PO ONE (22:35)
[2018-12-19] MEDS ORDERED: KETOROLAC TROMETHAMINE 60 MG/2 ML SDV IM ONE (22:35)
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
--- NOTE | 2018-12-20 01:30 | RADIOLOGY REPORT (SQ) ---
EXAM DESCRIPTION: XR CHEST 1 VIEW COMPLETED DATE/TME: 12/19/2018 22:35 CLINICAL HISTORY: 38 years, Female, chest wall pain COMPARISON: 06/21/2016 chest NUMBER OF VIEWS: 1 TECHNIQUE: Portable chest LIMITATIONS: None. FINDINGS: Heart size normal. Lungs are clear. No pneumothorax IMPRESSION: Negative chest copyright 2010 [employer]- All Rights Reserved
--- NOTE | 2018-12-20 01:30 | RADIOLOGY REPORT (SQ) ---
EXAM DESCRIPTION: CT LUMBAR SPINE WITHOUT IV CONTRAST COMPLETED DATE/TME: 12/19/2018 22:37 CLINICAL HISTORY: 38 years, Female, l4-5 point tenderness COMPARISON: MRI 07/17/2016 TECHNIQUE: 354 Images stored on PACS. All CT scanners at this facility use dose modulation, iterative reconstruction, and/or weight based dosing when appropriate to reduce radiation dose to as low as reasonably achievable (ALARA). [facility]: Dose Right [facility]: CareDose [facility]: Dose Right [facility]: Teradose 4D [facility]: [employer] LIMITATIONS: None. FINDINGS: Evaluation of spinal canal contents limited due to CT technique. However, vertebral body height and alignment is preserved. The disc spaces are maintained. Limited evaluation of extraspinal anatomic structures shows partial visualization of an IUD in place. No CT evidence for central canal stenosis or neural foraminal compromise at any level. IMPRESSION: Unremarkable CT lumbar spine TECHNICAL DOCUMENTATION: Quality ID # 436: Final reports with documentation of one or more dose reduction techniques (e.g., Automated exposure control, adjustment of the mA and/or kV according to patient size, use of iterative reconstruction technique) copyright 2011 [employer]- All Rights Reserved
--- NOTE | 2018-12-20 01:30 | RADIOLOGY REPORT (SQ) ---
EXAM DESCRIPTION: CT CERVICAL SPINE WITHOUT IV CONTRAST COMPLETED DATE/TME: 12/19/2018 22:35 CLINICAL HISTORY: 38 years, Female, c6 pain COMPARISON: None. TECHNIQUE: 244 Images stored on PACS. All CT scanners at this facility use dose modulation, iterative reconstruction, and/or weight based dosing when appropriate to reduce radiation dose to as low as reasonably achievable (ALARA). [facility]: Dose Right [facility]: CareDose [facility]: Dose Right [facility]: Teradose 4D [facility]: [employer] LIMITATIONS: None. FINDINGS: Evaluation of spinal canal contents somewhat limited due to CT technique. However, vertebral body height and alignment is preserved. The disc spaces are maintained. Limited evaluation of extraspinal anatomic structures is grossly unremarkable. Slight straightening of the normal cervical lordosis could reflect muscle spasm/strain in the appropriate clinical setting. No CT evidence for central canal stenosis or neural foraminal compromise at any level. IMPRESSION: Slight straightening of the normal cervical lordosis which may reflect muscle spasm/strain. Remainder is unremarkable. TECHNICAL DOCUMENTATION: Quality ID # 436: Final reports with documentation of one or more dose reduction techniques (e.g., Automated exposure control, adjustment of the mA and/or kV according to patient size, use of iterative reconstruction technique) copyright 2010 [employer]- All Rights Reserved
--- NOTE | 2018-12-20 01:31 | RADIOLOGY REPORT (SQ) ---
EXAM DESCRIPTION: XR SHOULDER 2 OR MORE VIEWS COMPLETED DATE/TME: 12/19/2018 22:36 CLINICAL HISTORY: 38 years, Female, left shoulder pain COMPARISON: None. NUMBER OF VIEWS: 3 TECHNIQUE: 3 view left shoulder LIMITATIONS: None. FINDINGS: Negative for fracture or dislocation. Mild degenerative changes of the acromioclavicular and glenohumeral joints. Soft tissues are unremarkable IMPRESSION: Mild degenerative change, as above copyright 2010 [employer]- All Rights Reserved
[2018-12-20 01:58] VITALS: BP 141/81
== END 2018-12-20 01:58 | disposition home or self-care (01) ==
LOC: ER 20:32
DX: S49.92XA Unspecified injury of left shoulder and upper arm, initial encounter (principal); S39.92XA Unspecified injury of lower back, initial encounter; V49.40XA Driver injured in collision with unspecified motor vehicles in traffic accident, initial encounter; Z88.6 Allergy status to analgesic agent; Z91.011 Allergy to milk products
CPT/HCPCS: 99284; 96372; 71045; 73030; 72125; 72131; J1885

== ENCOUNTER 2019-02-25 10:49 | Emergency (ER) | payer MEDICAID ==
[2019-02-25 10:58] VITALS: BP 134/94
[2019-02-25] MEDS ORDERED: KETOROLAC TROMETHAMINE 60 MG/2 ML SDV IM ONE (11:21)
--- NOTE | 2019-02-25 11:22 | ER Document Report ---
HPI - HPI Time Seen by Provider: 02/25/19 11:15 Pain Level: 4 Notes: Patient is a 38-year-old female with a history of rheumatoid arthritis, fibromyalgia, migraines, Crohn's who presents complaining of left posterior shoulder pain that radiates down her tricep that began 2 to 3 days ago without precipitating event. Patient states that movement of her arm makes the pain worse. It is described as an ache/throb. Patient states that she does have issues with her left shoulder and with her fibromyalgia. She is otherwise able to eat and drink without difficulty. She is urinating normally. She has not noticed any redness or swelling otherwise. No bruising. I reiterated on her initial chief complaint that she marked shortness of breath, patient states that she does not have any chest pain, dyspnea on exertion, or shortness of breath. Patient is declining any chest involvement. No IV drug history. Denies any headache, fever, neck pain, changes in vision/speech/mentation/hearing, URI, sore throat, chest pain, palpitations, syncope, cough, shortness of breath, wheeze, dyspnea, abdominal pain, nausea/vomiting/diarrhea, urinary retention, dysuria, hematuria, loss of control of bowel or bladder, numbness/tingling, saddle anesthesia, muscle paralysis/weakness, or rash. - ROS Systems Reviewed and Negative: Yes All other systems reviewed and negative - CONSTITUTIONAL Constitutional: DENIES: Fever, Chills - EENT EENT: DENIES: Sore Throat, Ear Pain, Eye problems - NEURO Neurology: REPORTS: Headache - YESTERDAY. DENIES: Weakness, Vision blurred, Dizzinesss / Vertigo - CARDIOVASCULAR Cardiovascular: DENIES: Chest pain - RESPIRATORY Respiratory: REPORTS: Trouble Breathing, Coughing - NON PRODUCTIVE - GASTROINTESTINAL Gastrointestinal: DENIES: Abdominal Pain, Black / Bloody Stools - URINARY Urinary: DENIES: Dysuria, Urgency, Frequency - REPRODUCTIVE Reproductive: DENIES: : - MUSCULOSKELETAL Musculoskeletal: REPORTS: Extremity pain - LEFT ARM Past Medical History - Social History Smoking Status: Never Smoker Chew tobacco use (# tins/day): No Frequency of alcohol use: None Drug Abuse: None Family History: Reviewed & Not Pertinent, Arthritis, CAD, CVA, DM, Hyperlipidemia, Hypertension, Malignancy, Thyroid Disfunction Patient has suicidal ideation: No Patient has homicidal ideation: No - Past Medical History Cardiac Medical History: Denies: Hx DVT, Hx Hypertension Pulmonary Medical History: Denies: Hx COPD, Hx Tuberculosis Neurological Medical History: Reports: Hx Migraine. Denies: Hx Seizures Endocrine Medical History: Denies: Hx Diabetes Mellitus Type 1, Hx Diabetes Mellitus Type 2, Hx Hyperthyroidism Renal/ Medical History: Reports: Hx Kidney Stones. Denies: Hx Ovarian Cysts, Hx Peritoneal Dialysis, Hx Pelvic Inflammatory Disease GI Medical History: Reports: Hx Crohn's Disease - Strictures, Hx Gastroesophageal Reflux Disease Musculoskeletal Medical History: Reports Hx Arthritis - Rheumatoid, Reports Hx Fibromyalgia Skin Medical History: Reports Hx MRSA Psychiatric Medical History: Reports: Hx Depression Past Surgical History: Reports: Hx Cholecystectomy, Hx Orthopedic Surgery - Right knee. Denies: Hx Hysterectomy, Hx Pacemaker - Immunizations Immunizations up to date: Yes Hx Diphtheria, Pertussis, Tetanus Vaccination: Yes Vertical Provider Document - CONSTITUTIONAL Agree With Documented VS: Yes Notes: PHYSICAL EXAMINATION: GENERAL: Well-appearing, well-nourished and in no acute distress. NECK: Normal range of motion, supple without lymphadenopathy. Non-tender. Spurling negative. No rigidity/meningismus. LUNGS: Breath sounds clear to auscultation bilaterally and equal. No wheezes rales or rhonchi. HEART: Regular rate and rhythm without murmurs, rubs, gallops. Musculoskeletal: Lt shoulder: FROM to passive/active. Strength 5+/5. Neg impingement test. Neg speed test. No crepitus. No erythema or warmth. No deformity or ecchymosis. RC intact 5+/5 strength. + mild tenderness to the insertion of the left Lat. Dorsi muscle and to the scapular area that reproduces pain described. + mild tenderness to the deltoid. No bony tenderness. Extremities: No cyanosis, clubbing, or edema b/l. Peripheral pulses 2+. Capillary refill less than 3 seconds. NEUROLOGICAL: Normal speech, normal gait. Normal sensory, motor exams PSYCH: Normal mood, normal affect. SKIN: Warm, Dry, normal turgor, no rashes or lesions noted. - INFECTION CONTROL TRAVEL OUTSIDE OF THE [place] IN LAST 30 DAYS: No Course - Re-evaluation Re-evalutation: 02/25/19 11:26 Patient is an afebrile, well-hydrated, 38-year-old female who presents to the ED with left shoulder pain which I suspect to be inflammatory. Vitals are acceptable without any significant tachycardia, tachypnea, or hypoxia. PE is otherwise unremarkable for any neurovascular compromise, obvious tendon/ligament rupture, obvious fracture/dislocation, septic joint. Symptoms are completely reproducible with palpation and range of motion. Toradol given IM. Patient is nontoxic-appearing. No other labs or imaging warranted at this time based on H&P. Conservative measures otherwise for symptoms. Recheck with your PCM in 3- 5 days. Consider consult orthopedics. Return to the ED with any worsening/concerning symptoms otherwise as reviewed in discharge. Patient is in agreement. - Vital Signs Vital signs: Temp Pulse Resp BP Pulse Ox 98.4 F 75 16 134/94 H 99 02/25/19 10:56 02/25/19 10:56 02/25/19 10:56 02/25/19 10:56 02/25/19 10:56 Discharge - Discharge Clinical Impression: Left shoulder pain Qualifiers: Chronicity: acute Qualified Code(s): M25.512 - Pain in left shoulder Condition: Stable Disposition: HOME, SELF-CARE Additional Instructions: Rest, Ice, Compression, Elevation Tylenol/ibuprofen as needed Light stretches daily Strength exercises as able Moist heat and massage may help F/u with your PCP in 3-5 days for a recheck Consider consult(s) with Orthopedics/physical therapy for ongoing/worsening symptoms Return to the ED with any worsening symptoms and/or development of fever, headache, chest pain, palpitations, syncope, shortness of breath, trouble breathing, abdominal pain, n/v/d, muscle weakness/paralysis, numbness/tingling, swelling, redness, or other worsening symptoms that are concerning to you. Prescriptions: Prednisone [Deltasone 10 mg Tablet] 10 mg PO DAILY #18 tablet Forms: Elevated Blood Pressure Referrals: RENETTA MAGANA MD [Primary Care Provider] - Follow up as needed [facility] [Provider Group] - Follow up as needed
== END 2019-02-25 11:50 | disposition home or self-care (01) ==
LOC: ER 10:49
DX: M25.512 Pain in left shoulder (principal); M79.602 Pain in left arm; M79.7 Fibromyalgia; R51 Headache; R05 Cough
CPT/HCPCS: 99283; 96372; J1885

== ENCOUNTER 2019-02-28 12:01 | Emergency (ER) | payer MEDICAID ==
[2019-02-28] MEDS ORDERED: KETOROLAC TROMETHAMINE 60 MG/2 ML SDV IM ONE (13:05)
[2019-02-28] MEDS ORDERED: LIDOCAINE 5% (700 MG) TRANSDERMAL ADH..PATCH TP ONE (13:05)
--- NOTE | 2019-02-28 13:11 | ER Document Report ---
HPI - HPI Patient complains to provider of: Low back pain Time Seen by Provider: 02/28/19 12:55 Onset: Other - 4 days Onset/Duration: Persistent Quality of pain: Achy Pain Level: 5 Context: Patient was bending over to pick up attendant towels and felt a pop in the low back. Patient states that the back pain caused her to fall forward. Patient reports low back pain since then. Patient does have a history of rheumatoid arthritis as well as fibromyalgia. Associated Symptoms: Other - low back pain Exacerbated by: Movement, Walking Relieved by: Denies Similar symptoms previously: Yes Recently seen / treated by doctor: No - ROS ROS below otherwise negative: Yes Systems Reviewed and Negative: Yes All other systems reviewed and negative - NEURO Neurology: DENIES: Weakness - REPRODUCTIVE Reproductive: DENIES: : - MUSCULOSKELETAL Musculoskeletal: REPORTS: Back Pain - DERM Skin Color: Normal Skin Problems: None Past Medical History - General Information source: Patient - Social History Smoking Status: Never Smoker Frequency of alcohol use: None Drug Abuse: None Occupation: None Family History: Reviewed & Not Pertinent, Arthritis, CAD, CVA, DM, Hyperlipidemia, Hypertension, Malignancy, Thyroid Disfunction Neurological Medical History: Reports: Hx Migraine. Denies: Hx Seizures Renal/ Medical History: Reports: Hx Kidney Stones. Denies: Hx Ovarian Cysts, Hx Peritoneal Dialysis, Hx Pelvic Inflammatory Disease GI Medical History: Reports: Hx Crohn's Disease - Strictures, Hx Gastroesophageal Reflux Disease Musculoskeletal Medical History: Reports Hx Arthritis - Rheumatoid, Reports Hx Fibromyalgia Skin Medical History: Reports Hx MRSA Psychiatric Medical History: Reports: Hx Depression Past Surgical History: Reports: Hx Cholecystectomy, Hx Orthopedic Surgery - Right knee - Immunizations Immunizations up to date: Yes Hx Diphtheria, Pertussis, Tetanus Vaccination: Yes Vertical Provider Document - CONSTITUTIONAL Agree With Documented VS: Yes Exam Limitations: No Limitations General Appearance: WD/WN, No Apparent Distress - INFECTION CONTROL TRAVEL OUTSIDE OF THE [place] IN LAST 30 DAYS: No - HEENT HEENT: Atraumatic, Normocephalic - NECK Neck: Normal Inspection, Supple - RESPIRATORY Respiratory: Breath Sounds Normal, No Respiratory Distress - CARDIOVASCULAR Cardiovascular: Regular Rate, Regular Rhythm, No Murmur - BACK Back: Abnormal Inspection - Lumbar right paraspinal tenderness Course - Re-evaluation Re-evalutation: 02/28/19 13:50 The patient presents with low back pain without signs of spinal cord compressi on, cauda equina syndrome, infection, aneurysm, or other serious etiology. The patient is neurologically intact. Given the extremely risk of these diagnoses further testing and evaluation for these possibilities does not appear to be indicated at this time. Patient has been instructed to return if the symptoms worsen or change in any way. - Vital Signs Vital signs: Temp Pulse Resp BP Pulse Ox 98.5 F 83 18 133/84 H 100 02/28/19 12:04 02/28/19 12:04 02/28/19 12:04 02/28/19 12:04 02/28/19 12:04 - Diagnostic Test Radiology reviewed: Reports reviewed Discharge - Discharge Clinical Impression: Low back pain Qualifiers: Chronicity: unspecified Back pain laterality: right Sciatica presence: without sciatica Qualified Code(s): M54.5 - Low back pain Condition: Stable Disposition: HOME, SELF-CARE Instructions: Ice Packs ([facility]), Low Back Pain ([facility]) Additional Instructions: Return immediately for any new or worsening symptoms Followup with your primary care provider, call tomorrow to make a followup appointment Take your muscle relaxants that you have as prescribed Follow-up with your orthopedic spinal doctor for recheck You may add Tylenol [id number] as directed to help with pain relief symptoms Prescriptions: Lidocaine [Lidoderm 5% (700 mg) Transdermal Patch] 1 patch TP DAILY PRN #10 adh..patch PRN Reason: Referrals: RENETTA MAGANA MD [Primary Care Provider] - Follow up as needed [facility] [Provider Group] - Follow up tomorrow
--- NOTE | 2019-02-28 13:40 | RADIOLOGY REPORT (SQ) ---
EXAM DESCRIPTION: L SPINE WHOLE COMPLETED DATE/TIME: 02/28/2019 1:27 pm REASON FOR STUDY: low back pain COMPARISON: None. NUMBER OF VIEWS: Five views including obliques. TECHNIQUE: AP, lateral, oblique, and sacral radiographic images acquired of the lumbar spine. LIMITATIONS: None. FINDINGS: MINERALIZATION: Normal. SEGMENTATION: Normal. No transitional anatomy. ALIGNMENT: Mild levoscoliosis. VERTEBRAE: Maintained height. No fracture or worrisome bone lesion. DISCS: Preserved height. No significant osteophytes or end plate irregularity. POSTERIOR ELEMENTS: Pedicles and facets are intact. No pars defect or posterior arch defects. HARDWARE: None in the spine. PARASPINAL SOFT TISSUES: Normal. PELVIS: Intact as visualized. No fractures or worrisome bone lesions. SI joints intact. OTHER: No other significant finding. IMPRESSION: Mild scoliosis. TECHNICAL DOCUMENTATION: JOB ID: [id number] [employer]- All Rights Reserved Reading location - IP/workstation name: [email or web address]
[2019-02-28 14:44] VITALS: BP 115/59
== END 2019-02-28 14:49 | disposition home or self-care (01) ==
LOC: ER 12:01
DX: M54.5 Low back pain (principal); Z87.442 Personal history of urinary calculi; Z86.14 Personal history of Methicillin resistant Staphylococcus aureus infection; Z90.49 Acquired absence of other specified parts of digestive tract
CPT/HCPCS: 99283; 96372; 72110; J1885; J3490

== ENCOUNTER 2019-11-09 07:41 | Inpatient (IN) | payer OTHER, MEDICAID ==
[2019-11-09 10:11] LABS: APPEARANCE,URINE SLIGHTLY-CLOUDY; BILIRUBIN,URINE NEGATIVE (NEGATIVE); COLOR,URINE YELLOW; GLUCOSE, URINE NEGATIVE (NEGATIVE); KETONES,URINE TRACE mg/dL (NEGATIVE); LEUKOCYTE ESTERASE,URINE NEGATIVE (NEGATIVE); NITRITE,URINE NEGATIVE (NEGATIVE); PROTEIN,URINE 30 mg/dL (NEGATIVE); URINE SPECIFIC GRAVITY 1.025; UROBILINOGEN,URINE NEGATIVE mg/dL (<2.0)
[2019-11-09] MEDS ORDERED: ONDANSETRON HCL INJ/PF 4 MG/2 ML SDV IV ONE ×2 (10:49→13:14)
[2019-11-09] MEDS ORDERED: FENTANYL CITRATE INJ/PF 100 MCG/2 ML AMPUL IV ONE (10:50)
[2019-11-09] MEDS ORDERED: NORMAL SALINE 1000 ML 1,000 ML IV ONE (10:50)
--- NOTE | 2019-11-09 10:52 | ER Document Report ---
ED Medical Screen (RME) - General Chief Complaint: Abdominal Pain Stated Complaint: ABDOMINAL PAIN Time Seen by Provider: 11/09/19 10:43 Primary Care Provider: RENETTA MAGANA MD [Primary Care Provider] - Follow up as needed Notes: HPI: 39-year-old female who follows at [place] for Crohn's presenting with left upper quadrant pain since 7 PM last night with multiple episodes of nausea vomiting states she had fever up to 101 last night. States pain is worse than what she would consider normal for her Crohn's discomfort I have greeted and performed a rapid initial assessment of this patient. A comprehensive ED assessment and evaluation of the patient, analysis of test results and completion of the medical decision making process will be conducted by additional ED providers PHYSICAL EXAMINATION: GENERAL: Uncomfortable -appearing, well-nourished and in moderate acute distress. HEAD: Atraumatic, normocephalic. EYES: sclera anicteric, conjunctiva are normal. ENT: Moist mucous membranes. NECK: Normal range of motion LUNGS: Normal work of breathing, clear to auscultation HEART: 2+ radial pulses bilaterally, mildly tachycardic ABD: limited by positioning for exam in triage. Obese, moderate tenderness on palpation of the left upper quadrant EXTREMITIES: no pitting or edema. No cyanosis. NEUROLOGICAL: No focal neurological deficits. Moves all extremities spontaneously and on command. PSYCH: Normal mood, normal affect. SKIN: Warm, Dry, normal turgor, no rashes or lesions noted. TRAVEL OUTSIDE OF THE [place] IN LAST 30 DAYS: No - Related Data Allergies/Adverse Reactions: wheat [Wheat] Allergy (Intermediate, Verified 11/09/19 08:32) GI upset morphine [Morphine] Allergy (Verified 11/09/19 08:32) milk [Milk] Adverse Reaction (Verified 11/09/19 08:32) Home Medications: sterla q 4 weeks. Past Medical History - Social History Chew tobacco use (# tins/day): No Frequency of alcohol use: None Drug Abuse: None Family history: None - Past Medical History Cardiac Medical History: Denies: Hx DVT, Hx Hypertension Pulmonary Medical History: Denies: Hx COPD, Hx Tuberculosis Neurological Medical History: Reports: Hx Migraine. Denies: Hx Seizures Endocrine Medical History: Denies: Hx Diabetes Mellitus Type 1, Hx Diabetes Mellitus Type 2, Hx Hyperthyroidism Renal/ Medical History: Reports: Hx Kidney Stones. Denies: Hx Ovarian Cysts, Hx Peritoneal Dialysis, Hx Pelvic Inflammatory Disease GI Medical History: Reports: Hx Crohn's Disease - Strictures, Hx Gastroesophageal Reflux Disease Musculoskeltal Medical History: Reports Hx Arthritis - Rheumatoid, Reports Hx Fibromyalgia Skin Medical History: Reports Hx MRSA Psychiatric Medical History: Reports: Hx Depression Past Surgical History: Reports: Hx Cholecystectomy, Hx Orthopedic Surgery - Right knee. Denies: Hx Hysterectomy, Hx Pacemaker - Immunizations Immunizations up to date: Yes Hx Diphtheria, Pertussis, Tetanus Vaccination: Yes Physical Exam - Vital signs Vitals: Temp Pulse Resp BP Pulse Ox 98.4 F 91 20 146/89 H 100 11/09/19 07:45 11/09/19 07:45 11/09/19 07:45 11/09/19 07:45 11/09/19 07:45 Course - Vital Signs Vital signs: Temp Pulse Resp BP Pulse Ox 98.4 F 91 20 146/89 H 100 11/09/19 07:45 11/09/19 07:45 11/09/19 07:45 11/09/19 07:45 11/09/19 07:45 - Laboratory Laboratory results interpreted by me: 11/09/19 09:20 Urine Protein 30 H Urine Ketones TRACE H Urine Ascorbic Acid 40 H Doctor's Discharge - Discharge Referrals: RENETTA MAGANA MD [Primary Care Provider] - Follow up as needed
[2019-11-09 11:02] LABS: ABSOLUTE BASOPHILS # (AUTO) 0.1 10^3/uL (0.0-0.2); ABSOLUTE LYMPHOCYTES (AUTO) 1.1 10^3/uL (0.5-4.7); ABSOLUTE MONOCYTES (AUTO) 0.6 10^3/uL (0.1-1.4); ABSOLUTE NEUT (AUTO) 10.1 10^3/uL (1.7-8.2); BASOPHILS % (AUTO) 0.5 % (0-2); EOSINOPHILS % (AUTO) 0.1 % (0-6); HEMATOCRIT 38.9 % (36.0-47.0); HEMOGLOBIN 12.9 g/dL (12.0-15.5); LYMPHOCYTES % (AUTO) 9.5 % (13-45); MEAN CORPUSCULAR HEMOGLOBIN 28.6 pg (27.0-33.4); MEAN CORPUSCULAR HGB CONC 33.2 g/dL (32.0-36.0); MEAN CORPUSCULAR VOLUME 86 fl (80-97); MONOCYTES % (AUTO) 4.9 % (3-13); PLATELET COUNT 241 10^3/uL (150-450); RED BLOOD COUNT 4.51 10^6/uL (3.72-5.28); RED CELL DISTRIBUTION WIDTH 13.9 % (11.5-14.0); TOTAL CELLS COUNTED % (AUTO) 100 %; WHITE BLOOD COUNT 11.8 10^3/uL (4.0-10.5)
[2019-11-09] MEDS ORDERED: ONDANSETRON 4 MG TAB.RAPDIS PO ONE (11:13)
[2019-11-09 11:21] LABS: ALBUMIN 4.3 g/dL (3.5-5.0); ALKALINE PHOSPHATASE 78 U/L (38-126); ANION GAP 10 (5-19); ASPARTATE AMINO TRANSFERASE 21 U/L (14-36); BILIRUBIN,TOTAL 0.5 mg/dL (0.2-1.3); BLOOD UREA NITROGEN 4 mg/dL (7-20); CALCIUM 9.6 mg/dL (8.4-10.2); CARBON DIOXIDE 23 mmol/L (22-30); CHLORIDE 104 mmol/L (98-107); GLUCOSE 113 mg/dL (75-110); TOTAL PROTEIN 7.6 g/dL (6.3-8.2)
[2019-11-09] MEDS ORDERED: ONDANSETRON 4 MG TAB.RAPDIS ONE (11:39)
[2019-11-09 11:54] LABS: C-REACTIVE PROTEIN 9.9 mg/L (<10.0)
[2019-11-09] MEDS ORDERED: HYDROMORPHONE HCL INJ/PF 2 MG/ML AMPULE IV ONE ×3 (13:14→16:09)
--- NOTE | 2019-11-09 13:15 | ER Document Report ---
Entered by DONTA JONES SCRIBE 11/09/19 1114 Acting as scribe for:DAVE DELACRUZ MD ED General - General Chief Complaint: Abdominal Pain Stated Complaint: ABDOMINAL PAIN Time Seen by Provider: 11/09/19 10:43 Primary Care Provider: RENETTA MAAGNA MD [Primary Care Provider] - Follow up as needed Information source: Patient Notes: 39 year old female presents to the emergency department with LUQ abdominal pain that began last night at 7PM. Patient describes the LUQ abdominal pain as worsening and "worse than normal" when referencing her Crohns pain. Patient reports fever (102), vomiting, and nausea. Patient denies diarrhea. Patient reports that she had a small bowel movement yesterday morning, which is not her normal bowel movement activity. Patient mentions that constipation is normal during flare ups. Patient is on Stelara for her Crohn's disease. This is managed by her bessemer converter operator at [facility]. She also sees a bessemer converter operator in [place], and has a primary care provider and [place]. TRAVEL OUTSIDE OF THE [place] IN LAST 30 DAYS: No - Related Data Allergies/Adverse Reactions: wheat [Wheat] Allergy (Intermediate, Verified 11/09/19 08:32) GI upset morphine [Morphine] Allergy (Verified 11/09/19 08:32) milk [Milk] Adverse Reaction (Verified 11/09/19 08:32) Home Medications: sterla q 4 weeks. Past Medical History - General Information source: Patient - Social History Smoking Status: Never Smoker Cigarette use (# per day): No Chew tobacco use (# tins/day): No Frequency of alcohol use: None Drug Abuse: None Family History: Reviewed & Not Pertinent, Arthritis, CAD, CVA, DM, Hyperlipidemia, Hypertension, Malignancy, Thyroid Disfunction Patient has suicidal ideation: No Patient has homicidal ideation: No Neurological Medical History: Reports: Hx Migraine Renal/ Medical History: Reports: Hx Kidney Stones GI Medical History: Reports: Hx Crohn's Disease - Strictures, Hx Gastroesophageal Reflux Disease Musculoskeletal Medical History: Reports Hx Arthritis - Rheumatoid, Reports Hx Fibromyalgia Skin Medical History: Reports Hx MRSA Psychiatric Medical History: Reports: Hx Depression Past Surgical History: Reports: Hx Cholecystectomy, Hx Orthopedic Surgery - Right knee - Immunizations Immunizations up to date: Yes Hx Diphtheria, Pertussis, Tetanus Vaccination: Yes Review of Systems - Review of Systems Constitutional: See HPI, Fever EENT: No symptoms reported Cardiovascular: No symptoms reported Respiratory: No symptoms reported Gastrointestinal: See HPI, Abdominal pain, Vomiting, Constipation, Last bowel m ovement - Small-yesterday morning. denies: Diarrhea Genitourinary: No symptoms reported Female Genitourinary: No symptoms reported Musculoskeletal: No symptoms reported Skin: No symptoms reported Hematologic/Lymphatic: No symptoms reported Neurological/Psychological: No symptoms reported -: Yes All other systems reviewed and negative Physical Exam - Vital signs Vitals: Temp Pulse Resp BP Pulse Ox 98.4 F 91 20 146/89 H 100 11/09/19 07:45 11/09/19 07:45 11/09/19 07:45 11/09/19 07:45 11/09/19 07:45 - Notes Notes: Physical Exam: General: Alert, appears uncomfortable. HEENT: Normocephalic. Atraumatic. PERRL. Extraocular movements intact. Oropharynx clear. Neck: Supple. Non-tender. Respiratory: No respiratory distress. Clear and equal breath sounds bilaterally. Cardiovascular: Regular rate and rhythm. Abdominal: LUQ and Epigastric tenderness to palpation. No distension. Hypoactive bowel sounds. Back: Severe left CVA tenderness to percussion. Extremities: Moves all four extremities. Upper extremities: Normal inspection. Normal ROM. Lower extremities: Normal inspection. No edema. Normal ROM. Neurological: Normal cognition. AAOx4. Normal speech. Psychological: Normal affect. Normal Mood. Skin: Warm. Dry. Normal color. Course - Vital Signs Vital signs: Temp Pulse Resp BP Pulse Ox 98.1 F 84 20 128/80 H 99 11/09/19 13:54 11/09/19 13:54 11/09/19 13:54 11/09/19 13:54 11/09/19 13:54 - Laboratory Result Diagrams: 11/09/19 10:43 11/09/19 10:43 Laboratory results interpreted by me: 11/09/19 11/09/19 11/09/19 09:20 10:43 10:43 WBC 11.8 H Lymph % (Auto) 9.5 L Absolute Neuts (auto) 10.1 H Seg Neutrophils % 85.0 H ESR BUN 4 L Glucose 113 H Urine Protein 30 H Urine Ketones TRACE H Urine Ascorbic Acid 40 H 02/06/20 10:43 WBC Lymph % (Auto) Absolute Neuts (auto) Seg Neutrophils % ESR 43 H BUN Glucose Urine Protein Urine Ketones Urine Ascorbic Acid - Diagnostic Test Radiology reviewed: Image reviewed, Reports reviewed - Noncontrast CT scan abdomen and pelvis shows mid to distal ileum dilated with retention of small bowel contents and mild surrounding inflammatory change involving the terminal ileum, suspicious for distal ileal stricture leading to partial small bowel obstruction, probably associated with Crohn's disease flare. No evidence for perforation or abscess. - Consults Dr. Aparicio Time consulted: 16:00 Consulted provider: will come to ER Discharge - Discharge Clinical Impression: Crohn's disease Qualifiers: Gastrointestinal tract location: small intestine Digestive disease complication type: with intestinal obstruction Qualified Code(s): K50.012 - Crohn's disease of small intestine with intestinal obstruction Condition: Stable Disposition: ADMITTED INPATIENT Admitting Provider: Markus (Hospitalist) Unit Admitted: Medical Floor Referrals: RENETTA MAGANA MD [Primary Care Provider] - Follow up as needed Scribe Attestation: 11/09/19 11:31 I personally performed the services described in the documentation, reviewed and edited the documentation which was dictated to the scribe in my presence, and it accurately records my words and actions. I personally performed the services described in the documentation, reviewed and edited the documentation which was dictated to the scribe in my presence, and it accurately records my words and actions.
--- NOTE | 2019-11-09 14:00 | RADIOLOGY REPORT (SQ) ---
EXAM DESCRIPTION: CT ABD/PELVIS NO ORAL OR IV COMPLETED DATE/TIME: 11/09/2019 12:20 pm REASON FOR STUDY: crohn's,L CVA pain,LUQ abd pain,hematuria,leukocyt COMPARISON: None. TECHNIQUE: CT scan of the abdomen and pelvis performed without intravenous or oral contrast. Images reviewed with lung, soft tissue, and bone windows. Reconstructed coronal and sagittal MPR images revi ewed. All images stored on PACS. All CT scanners at this facility use dose modulation, iterative reconstruction, and/or weight based d osing when appropriate to reduce radiation dose to as low as reasonably achievable (ALARA). [facility]: Dose Right [facility]: CareDose [facility]: Dose Right [facility]: Teradose 4D [facility]: [employer] RADIATION DOSE: CT Rad equipment meets quality standard of care and radiation dose reduction techniq ues were employed. CTDIvol: 17.9 mGy. DLP: 1077 mGy-cm.mGy. LIMITATIONS: None. FINDINGS: LOWER CHEST: No significant findings. No nodules or infiltrates. NON-CONTRASTED LIVER, SPLEEN, ADRENALS: Evaluation limited by lack of IV contrast. No identified sign ificant masses. PANCREAS: No masses. No peripancreatic inflammatory changes. GALLBLADDER: Surgically absent. RIGHT KIDNEY AND URETER: No suspicious masses. Assessment limited by lack of IV contrast. No signif icant calcifications. No hydronephrosis or hydroureter. LEFT KIDNEY AND URETER: No suspicious masses. Assessment limited by lack of IV contrast. No signifi cant calcifications. No hydronephrosis or hydroureter. AORTA AND RETROPERITONEUM: No aneurysm. No retroperitoneal masses or adenopathy. BOWEL AND PERITONEAL CAVITY: There is a focal dilated segment of small bowel measuring up to 3.1 cm d iameter. This demonstrates fecalization of small bowel contents in the mid abdomen and involves the mid to distal ileum to the level of the ileocecal valve. There is some mild inflammatory change invo lving the segment of dilated bowel and ileocecal valve. No focal perforation or peritoneal abscess. The proximal small bowel is decompressed. The colon is relatively decompressed. APPENDIX: Normal. PELVIS, BLADDER, AND ABDOMINAL WALL:Intrauterine device is located normally within the endometrium. No adnexal mass. There is no abdominal wall hernia. No subcutaneous fluid collection. BONES: No significant findings. OTHER: No other significant finding. IMPRESSION: 1. The mid to distal ileum is dilated with retention of small bowel contents and mild surrounding inf lammatory change involving the terminal ileum, suspicious for distal ileal stricture leading to parti al small bowel obstruction, probably associated with Crohn disease flare. There is no evidence of pe rforation or peritoneal abscess. 2. Appendix is normal. 3. Intrauterine device in the endometrium of the uterus. COMMENT: Quality ID # [id number]: Final reports with documentation of one or more dose reduction techniques (e.g., Automated exposure control, adjustment of the mA and/or kV according to patient size, use of iterative reconstruction technique) TECHNICAL DOCUMENTATION: JOB ID: [id number] [employer]- All Rights Reserved Reading location - IP/workstation name: [id number]
[2019-11-09] MEDS ORDERED: METOCLOPRAMIDE HCL INJ/PF 10 MG/2 ML SDV IV ONE (14:34)
[2019-11-09] MEDS ORDERED: METHYLPREDNISOLONE INJ 125 MG/2 ML SDV IV ONE (15:42)
[2019-11-09] MEDS ORDERED: DEXTROSE 50%-WATER 25 GM/50 ML DISP.SYRIN IV PRN ×2 (17:43)
[2019-11-09] MEDS ORDERED: GLUCAGON,HUMAN RECOMB 1 MG INJ SUBCUT PRN (17:43)
[2019-11-09] MEDS ORDERED: ACETAMINOPHEN 325 MG TABLET PO PRN (17:43)
[2019-11-09] MEDS ORDERED: DEXTROSE 40% GEL 15 GM TUBE PO PRN ×2 (17:43)
[2019-11-09] MEDS ORDERED: ALBUTEROL SULFATE 0.083% NEB 2.5 MG/3 ML AMPUL NEB PRN (17:43)
--- NOTE | 2019-11-09 18:06 | PDOC H&P ---
History of Present Illness Admission Date/PCP: 11/09/19 16:41 RENETTA MAGANA MD Patient complains of: Abdominal Pain which starte around 7pm on 11/08 History of Present Illness: CINDY BRAY is a 39 year old female Presents with acute onset upper abdominal pain which started about 7 PM last night. She also complained of nausea and vomiting associated with the symptoms. She says that she had been doing well prior to that. She has a history of a Crohn's disease for about 12 years. It appears she has had numerous complications before including strictures but she has never had to have surgery. She had a last colonoscopy in 2013. She is usually followed at [facility] and sees Dr. Bagley/Rebecca Russo @[phone] although her last visit was in March 23. She states she had been doing well and has been seeing her local sales administration manager as well as PCP. She is on Stelara which she takes every month. She was found to have a significant distal ileal stricture leading to partial small bowel obstruction today on the CAT scan. There is no evidence of perforation or peritoneal abscess. The mid to distal ileum is dilated with retention of small bowel contents mild surrounding inflammation around the terminal ileum. Past Medical History Cardiac Medical History: Denies: DVT, Hypertension Pulmonary Medical History: Denies: Chronic Obstructive Pulmonary Disease (COPD), Tuberculosis Neurological Medical History: Reports: Migraine Denies: Seizures Endocrine Medical History: Denies: Diabetes Mellitus Type 1, Diabetes Mellitus Type 2, Hyperthyroidism GI Medical History: Reports: Crohn's Disease - Strictures, Gastroesophageal Reflux Disease Musculoskeltal Medical History: Reports: Arthritis - Rheumatoid, Fibromyalgia Psychiatric Medical History: Reports: Depression Hematology: Reports: Anemia - B12 deficient Past Surgical History Past Surgical History: Reports: Cholecystectomy, Orthopedic Surgery - Right knee Denies: Hysterectomy, Pacemaker Social History Information Source: Patient Smoking Status: Never Smoker Electronic Cigarette use?: No Frequency of Alcohol Use: None Hx Recreational Drug Use: No Hx Prescription Drug Abuse: No - Advance Directive Resuscitation Status: Full Code Family History Family History: Reviewed & Not Pertinent, Arthritis, CAD, CVA, DM, Hyperlipidemia, Hypertension, Malignancy, Thyroid Disfunction Parental Family History Reviewed: Yes Children Family History Reviewed: NA Sibling(s) Family History Reviewed.: Yes Medication/Allergy Home Medications: Ustekinumab [Stelara] 90 mg SQ [id number] 11/09/19 Allergies/Adverse Reactions: wheat [Wheat] Allergy (Intermediate, Verified 11/09/19 08:32) GI upset morphine [Morphine] Allergy (Verified 11/09/19 08:32) milk [Milk] Adverse Reaction (Verified 11/09/19 08:32) Review of Systems Constitutional: PRESENT: weakness Gastrointestinal: PRESENT: abdominal pain, nausea, vomiting Musculoskeletal: PRESENT: joint swelling Physical Exam Vital Signs: Temp Pulse Resp BP Pulse Ox 98.1 F 84 20 128/80 H 99 11/09/19 13:54 11/09/19 13:54 11/09/19 13:54 11/09/19 13:54 11/09/19 13:54 Intake & Output 11/08/19 11/09/19 11/10/19 06:59 06:59 06:59 Intake Total 1000 Balance 1000 Weight 115.5 kg General appearance: PRESENT: no acute distress, well-developed, well-nourished Head exam: PRESENT: atraumatic, normocephalic Eye exam: PRESENT: conjunctiva pink, EOMI, PERRLA. ABSENT: scleral icterus Ear exam: PRESENT: normal external ear exam Mouth exam: PRESENT: moist, tongue midline Neck exam: ABSENT: carotid bruit, JVD, lymphadenopathy, thyromegaly Respiratory exam: PRESENT: clear to auscultation manasa. ABSENT: rales, rhonchi, wheezes Cardiovascular exam: PRESENT: RRR. ABSENT: diastolic murmur, rubs, systolic murmur Pulses: PRESENT: normal dorsalis pedis pul Vascular exam: PRESENT: normal capillary refill GI/Abdominal exam: PRESENT: normal bowel sounds, soft, tenderness - especially in epigastric area, RUQ. ABSENT: distended, guarding, organolmegaly, rebound Rectal exam: PRESENT: deferred Extremities exam: PRESENT: full ROM. ABSENT: calf tenderness, clubbing, pedal edema Neurological exam: PRESENT: alert, awake, oriented to person, oriented to place, oriented to time, oriented to situation, CN II-XII grossly intact. ABSENT: motor sensory deficit Psychiatric exam: PRESENT: appropriate affect, normal mood. ABSENT: homicidal ideation, suicidal ideation Skin exam: PRESENT: dry, intact, warm. ABSENT: cyanosis, rash Results Laboratory Results: 11/09/19 10:43 11/09/19 10:43 11/09/19 11/09/19 11/09/19 09:20 10:43 10:43 WBC 11.8 H RBC 4.51 Hgb 12.9 Hct 38.9 MCV 86 MCH 28.6 MCHC 33.2 RDW 13.9 Plt Count 241 Seg Neutrophils % 85.0 H Sodium 137.1 Potassium 4.0 Chloride 104 Carbon Dioxide 23 Anion Gap 10 BUN 4 L Creatinine 0.64 Est GFR ( Amer) > 60 Glucose 113 H Calcium 9.6 Total Bilirubin 0.5 AST 21 Alkaline Phosphatase 78 C-Reactive Protein Total Protein 7.6 Albumin 4.3 Lipase 37.3 Urine Color YELLOW Urine Appearance SLIGHTLY-CLOUDY Urine pH 7.0 Ur Specific [place] 1.025 Urine Protein 30 H Urine Glucose (UA) NEGATIVE Urine Ketones TRACE H Urine Blood NEGATIVE Urine Nitrite NEGATIVE Ur Leukocyte Esterase NEGATIVE Urine WBC (Auto) 1 Urine RBC (Auto) 16 11/09/19 10:43 WBC RBC Hgb Hct MCV MCH MCHC RDW Plt Count Seg Neutrophils % Sodium Potassium Chloride Carbon Dioxide Anion Gap BUN Creatinine Est GFR ( Amer) Glucose Calcium Total Bilirubin AST Alkaline Phosphatase C-Reactive Protein 9.9 Total Protein Albumin Lipase Urine Color Urine Appearance Urine pH Ur Specific [place] Urine Protein Urine Glucose (UA) Urine Ketones Urine Blood Urine Nitrite Ur Leukocyte Esterase Urine WBC (Auto) Urine RBC (Auto) Impressions: Abdomen/Pelvis CT 11/09/19 13:08 IMPRESSION: 1. The mid to distal ileum is dilated with retention of small bowel contents and mild surrounding inflammatory change involving the terminal ileum, suspicious for distal ileal stricture leading to partial small bowel obstruction, probably associated with Crohn disease flare. There is no evidence of perforation or peritoneal abscess. 2. Appendix is normal. 3. Intrauterine device in the endometrium of the uterus. Assessment and Plan - Diagnosis (1) Crohn's disease Qualifiers: Gastrointestinal tract location: small intestine Digestive disease complication type: with intestinal obstruction Qualified Code(s): K50.012 - Crohn's disease of small intestine with intestinal obstruction Is this a current diagnosis for this admission?: Yes Plan: Acute flare leading to ileal stricture and small bowel obstruction. Patient will be started on high-dose steroids. I think she will benefit from being treated at a tertiary center however there appears to be no available beds at [facility] or [facility] or any other surrounding facilities. There is no sales administration manager used car salesperson currently at this hospital. Patient was made aware of this information. To be kept n.p.o. and we will placed on Dilaudid for pain control. At this time there appears to be no acute surgical intervention needed. I will attempt to contact her sales administration manager at [facility] tomorrow to see if there is any further information that can be provided (2) Abdominal pain Is this a current diagnosis for this admission?: Yes Plan: This is secondary to above. Patient will be placed on Dilaudid for pain control (3) Small bowel obstruction Is this a current diagnosis for this admission?: Yes Plan: Secondary to terminal ileal stricture. Patient will be made n.p.o. and will continue to evaluate. There is no evidence of acute abdomen at this point (4) Immunosuppression due to drug therapy Is this a current diagnosis for this admission?: Yes Plan: Patient is on Stelara. She also has a history of rheumatoid arthritis in addition to the longstanding Crohn's disease. She has fibromyalgia also - Plan Summary Summary: Will defer any antibiotic treatment for now but this will be reevaluated and started as appropriate - Time Time Spent with patient: 35 or more minutes Medications reviewed and adjusted accordingly: Yes Anticipated discharge: Home Within: within 72 hours
[2019-11-09] MEDS: HYDROMORPHONE HCL INJ/PF 2 MG/ML AMPULE IV PRN (18:37)
[2019-11-09] MEDS: ONDANSETRON HCL INJ/PF 4 MG/2 ML SDV IV PRN (18:37)
[2019-11-09 22:17] LABS: APPEARANCE,URINE TURBID; BILIRUBIN,URINE NEGATIVE (NEGATIVE); COLOR,URINE YELLOW; GLUCOSE, URINE 50 mg/dL (NEGATIVE); KETONES,URINE TRACE mg/dL (NEGATIVE); LEUKOCYTE ESTERASE,URINE NEGATIVE (NEGATIVE); NITRITE,URINE NEGATIVE (NEGATIVE); PROTEIN,URINE 30 mg/dL (NEGATIVE); URINE SPECIFIC GRAVITY 1.033; UROBILINOGEN,URINE NEGATIVE mg/dL (<2.0)
[2019-11-09] MEDS ORDERED: KETOROLAC TROMETHAMINE INJ/PF 30 MG/1 ML SDV IV ONE (23:00)
[2019-11-09] MEDS ORDERED: PROMETHAZINE HCL 25 MG TABLET PO ONE (23:00)
[2019-11-09] MEDS: METHYLPREDNISOLONE INJ 125 MG/2 ML SDV IV SCH (23:01)
[2019-11-09] MEDS: FAMOTIDINE INJ/PF 20 MG/2 ML SDV IV SCH (23:02)
[2019-11-09] MEDS: ZOLPIDEM TARTRATE 5 MG TABLET PO PRN (23:03)
[2019-11-09] MEDS: RINGERS SOLUTION,LACTATED 1,000 ML IV PRN (23:04)
[2019-11-10] MEDS ORDERED: KETOROLAC TROMETHAMINE INJ/PF 30 MG/1 ML SDV IV SCH (03:00)
[2019-11-10] MEDS: METHYLPREDNISOLONE INJ 125 MG/2 ML SDV IV SCH ×3 (05:59→20:01)
[2019-11-10 06:22] LABS: ABSOLUTE MONOCYTES (AUTO) 0.1 10^3/uL (0.1-1.4); ABSOLUTE NEUT (AUTO) 7.7 10^3/uL (1.7-8.2); BASOPHILS % (AUTO) 0.4 % (0-2); HEMATOCRIT 37.7 % (36.0-47.0); HEMOGLOBIN 12.8 g/dL (12.0-15.5); LYMPHOCYTES % (AUTO) 10.9 % (13-45); MEAN CORPUSCULAR HEMOGLOBIN 28.8 pg (27.0-33.4); MEAN CORPUSCULAR HGB CONC 33.9 g/dL (32.0-36.0); MEAN CORPUSCULAR VOLUME 85 fl (80-97); MONOCYTES % (AUTO) 1.5 % (3-13); PLATELET COUNT 226 10^3/uL (150-450); RED BLOOD COUNT 4.43 10^6/uL (3.72-5.28); RED CELL DISTRIBUTION WIDTH 13.6 % (11.5-14.0); SEGMENTED NEUTROPHILS % (AUTO) 87.2 % (42-78); TOTAL CELLS COUNTED % (AUTO) 100 %; WHITE BLOOD COUNT 8.9 10^3/uL (4.0-10.5)
[2019-11-10 06:29] LABS: ANION GAP 14 (5-19); BLOOD UREA NITROGEN 8 mg/dL (7-20); CALCIUM 9.6 mg/dL (8.4-10.2); CARBON DIOXIDE 20 mmol/L (22-30); CHLORIDE 104 mmol/L (98-107); GLUCOSE 132 mg/dL (75-110); POTASSIUM 4.3 mmol/L (3.6-5.0)
[2019-11-10] MEDS: ENOXAPARIN SODIUM INJ 30 MG/0.3 ML DISP.SYRIN SUBCUT SCH (09:38)
[2019-11-10] MEDS: HYDROMORPHONE HCL INJ/PF 2 MG/ML AMPULE IV PRN ×4 (09:39→22:40)
[2019-11-10] MEDS: PROMETHAZINE HCL 25 MG TABLET PO PRN ×2 (09:39→18:27)
[2019-11-10] MEDS: FAMOTIDINE INJ/PF 20 MG/2 ML SDV IV SCH ×2 (09:41→23:08)
[2019-11-10] MEDS: ONDANSETRON HCL INJ/PF 4 MG/2 ML SDV IV PRN ×2 (10:45→17:00)
[2019-11-10] MEDS: RINGERS SOLUTION,LACTATED 1,000 ML IV PRN ×2 (11:20→22:45)
--- NOTE | 2019-11-10 14:08 | PDOC PROGRESS REPORT ---
Subjective Progress Note for:: 11/10/19 Subjective:: She continues to complain of abdominal pain nausea and vomiting. She says she is now really feeling much better. Reason For Visit: CHROHNS EXACERBATION,ABDOMINAL PAIN Physical Exam Vital Signs: Temp Pulse Resp BP Pulse Ox 98.1 F 84 16 103/59 L 96 11/10/19 11:03 11/10/19 12:09 11/10/19 12:09 11/10/19 11:03 11/10/19 12:09 Intake & Output 11/09/19 11/10/19 11/11/19 06:59 06:59 06:59 Intake Total 1370 1000 Output Total 100 Balance 1270 1000 Weight 116.1 kg General appearance: PRESENT: no acute distress, cooperative Head exam: PRESENT: atraumatic Neck exam: PRESENT: full ROM. ABSENT: carotid bruit, JVD Respiratory exam: PRESENT: clear to auscultation manasa Pulses: PRESENT: normal carotid pulses GI/Abdominal exam: PRESENT: normal bowel sounds, soft, tenderness, other - e pigastrc tenderness Extremities exam: PRESENT: full ROM Musculoskeletal exam: PRESENT: ambulatory Neurological exam: PRESENT: alert, awake, oriented to person, oriented to place, oriented to time, oriented to situation Results Laboratory Results: 11/10/19 05:44 11/10/19 05:44 11/09/19 11/10/19 11/10/19 21:40 05:44 05:44 WBC 8.9 RBC 4.43 Hgb 12.8 Hct 37.7 MCV 85 MCH 28.8 MCHC 33.9 RDW 13.6 Plt Count 226 Seg Neutrophils % 87.2 H Sodium 137.8 Potassium 4.3 Chloride 104 Carbon Dioxide 20 L Anion Gap 14 BUN 8 Creatinine 0.61 Est GFR ( Amer) > 60 Glucose 132 H Calcium 9.6 Urine Color YELLOW Urine Appearance TURBID Urine pH 5.0 Ur Specific [place] 1.033 Urine Protein 30 H Urine Glucose (UA) 50 H Urine Ketones TRACE H Urine Blood SMALL H Urine Nitrite NEGATIVE Ur Leukocyte Esterase NEGATIVE Urine RBC (Auto) 16 Impressions: Abdomen/Pelvis CT 11/09/19 13:08 IMPRESSION: 1. The mid to distal ileum is dilated with retention of small bowel contents and mild surrounding inflammatory change involving the terminal ileum, suspicious for distal ileal stricture leading to partial small bowel obstruction, probably associated with Crohn disease flare. There is no evidence of perforation or peritoneal abscess. 2. Appendix is normal. 3. Intrauterine device in the endometrium of the uterus. Assessment and Plan - Diagnosis (1) Crohn's disease Qualifiers: Gastrointestinal tract location: small intestine Digestive disease complication type: with intestinal obstruction Qualified Code(s): K50.012 - Crohn's disease of small intestine with intestinal obstruction Is this a current diagnosis for this admission?: Yes Plan: Acute flare leading to ileal stricture and small bowel obstruction. We will continue with high-dose Solu-Medrol. I talked to her contract analyst at [facility] and they agree with steroids. No other prevention warranted at this time. We will continue with supportive care. (2) Abdominal pain Is this a current diagnosis for this admission?: Yes Plan: This is secondary to above. Cont Dilaudid for pain control (3) Small bowel obstruction Is this a current diagnosis for this admission?: Yes Plan: Secondary to terminal ileal stricture. There is no evidence of acute abdomen at this point (4) Immunosuppression due to drug therapy Is this a current diagnosis for this admission?: Yes Plan: Patient is on Stelara. She also has a history of rheumatoid arthritis in addition to the longstanding Crohn's disease. She has fibromyalgia also - Plan Summary Summary: Will defer any antibiotic treatment for now but this will be reevaluated and started as appropriate - Time Time Spent with patient: 35 or more minutes - including discussions with GI at [facility] Medications reviewed and adjusted accordingly: Yes
[2019-11-10] MEDS ORDERED: PROMETHAZINE HCL 25 MG TABLET PO PRN (18:56)
[2019-11-10] MEDS: KETOROLAC TROMETHAMINE INJ/PF 30 MG/1 ML SDV IV PRN (20:02)
[2019-11-10] MEDS ORDERED: NA PHOS,M-B/NA PHOS,DI-BA (ADULT) 133 ML ENEMA PR PRN (21:40)
--- NOTE | 2019-11-10 22:23 | PDOC CONSULTATION ---
Consultation Consult Date: 11/10/19 Provider Consulted: CHRISTIANNE BARRON Consult reason:: Crohn's exacerbation with partial mechanical small bowel obstruction History of Present Illness Admission Date/PCP: 11/09/19 16:41 RENETTA MAGANA MD History of Present Illness: CINDY BRAY is a 39 year old female, obese, with a 13 history of Crohn's disease on multiple medications, who presents emergency room complaining of right lower quadrant pain. The CAT scan of the abdomen pelvis was done and is negative for appendicitis but significant for distal ileitis with stricture and partial mechanical small bowel obstruction. The physicians at [facility] which followed the patient have recommended to start the patient on steroids and methotrexate IV. Subsequently, she will be follow-up at [facility] once she leaves the hospital. Past Medical History Cardiac Medical History: Denies: DVT, Hypertension Pulmonary Medical History: Denies: Chronic Obstructive Pulmonary Disease (COPD), Tuberculosis Neurological Medical History: Reports: Migraine Denies: Seizures Endocrine Medical History: Denies: Diabetes Mellitus Type 1, Diabetes Mellitus Type 2, Hyperthyroidism GI Medical History: Reports: Crohn's Disease - Strictures, Gastroesophageal Reflux Disease Musculoskeltal Medical History: Reports: Arthritis - Rheumatoid, Fibromyalgia Psychiatric Medical History: Reports: Depression Hematology: Reports: Anemia - B12 deficient Past Surgical History Past Surgical History: Reports: Cholecystectomy, Orthopedic Surgery - Right knee Denies: Hysterectomy, Pacemaker Social History Smoking Status: Never Smoker Electronic Cigarette use?: No Frequency of Alcohol Use: None Hx Recreational Drug Use: No Hx Prescription Drug Abuse: No - Advance Directive Resuscitation Status: Full Code Family History Family History: Reviewed & Not Pertinent, Arthritis, CAD, CVA, DM, Hyperlipidemia, Hypertension, Malignancy, Thyroid Disfunction Parental Family History Reviewed: No Children Family History Reviewed: No Sibling(s) Family History Reviewed.: No Medication/Allergy Home Medications: Ustekinumab [Stelara] 90 mg SQ [id number] 11/09/19 Allergies/Adverse Reactions: wheat [Wheat] Allergy (Intermediate, Verified 11/09/19 08:32) GI upset morphine [Morphine] Allergy (Verified 11/09/19 08:32) milk [Milk] Adverse Reaction (Verified 11/09/19 08:32) Physical Exam Vital Signs: Temp Pulse Resp BP Pulse Ox 98.1 F 75 16 131/73 H 94 11/10/19 20:01 11/10/19 20:01 11/10/19 20:01 11/10/19 20:01 11/10/19 20:01 Intake & Output 11/09/19 11/10/19 11/11/19 06:59 06:59 06:59 Intake Total 1370 1480 Output Total 100 Balance 1270 1480 Weight 116.1 kg General appearance: PRESENT: no acute distress, obese Head exam: PRESENT: atraumatic, normocephalic Eye exam: PRESENT: EOMI Mouth exam: PRESENT: neck supple Respiratory exam: PRESENT: clear to auscultation manasa Cardiovascular exam: PRESENT: RRR GI/Abdominal exam: PRESENT: soft, tenderness - In the right lower quadrant Rectal exam: PRESENT: deferred Extremities exam: PRESENT: full ROM Musculoskeletal exam: PRESENT: full ROM Neurological exam: PRESENT: alert, altered, oriented to time, oriented to situation, CN II-XII grossly intact Psychiatric exam: PRESENT: appropriate affect Skin exam: PRESENT: warm Results Laboratory Results: 11/10/19 05:44 11/10/19 05:44 11/09/19 11/10/19 11/10/19 21:40 05:44 05:44 WBC 8.9 RBC 4.43 Hgb 12.8 Hct 37.7 MCV 85 MCH 28.8 MCHC 33.9 RDW 13.6 Plt Count 226 Seg Neutrophils % 87.2 H Sodium 137.8 Potassium 4.3 Chloride 104 Carbon Dioxide 20 L Anion Gap 14 BUN 8 Creatinine 0.61 Est GFR ( Amer) > 60 Glucose 132 H Calcium 9.6 Urine Color YELLOW Urine Appearance TURBID Urine pH 5.0 Ur Specific [place] 1.033 Urine Protein 30 H Urine Glucose (UA) 50 H Urine Ketones TRACE H Urine Blood SMALL H Urine Nitrite NEGATIVE Ur Leukocyte Esterase NEGATIVE Urine RBC (Auto) 16 Impressions: Abdomen/Pelvis CT 11/09/19 13:08 IMPRESSION: 1. The mid to distal ileum is dilated with retention of small bowel contents and mild surrounding inflammatory change involving the terminal ileum, suspicious for distal ileal stricture leading to partial small bowel obstruction, probably associated with Crohn disease flare. There is no evidence of perforation or peritoneal abscess. 2. Appendix is normal. 3. Intrauterine device in the endometrium of the uterus. Assessment & Plan - Diagnosis (1) Abdominal pain Is this a current diagnosis for this admission?: Yes (2) Crohn's disease Qualifiers: Gastrointestinal tract location: small intestine Digestive disease complication type: with intestinal obstruction Qualified Code(s): K50.012 - Crohn's disease of small intestine with intestinal obstruction Is this a current diagnosis for this admission?: Yes (3) Immunosuppression due to drug therapy Is this a current diagnosis for this admission?: Yes (4) Small bowel obstruction Is this a current diagnosis for this admission?: Yes - Plan Summary Plan Summary: Assessment: Right lower quadrant pain in a patient with a 13-year history of Crohn's disease Patient on multiple immunomodulators CT scan abdomen pelvis done yesterday reveals no inflammation of the appendix; rather, there is a distal obstruction at the level of the terminal ileum as per terminal ileitis Patient encounter with [facility] gastrointestinal service for management of her Crohn's disease exacerbation Plan: Unless it is an absolute emergency, it is recommended this patient with Crohn's disease followed at [facility] or any other Medical Center which is experienced with Crohn's disease. I will sign off. Please call with questions.
[2019-11-10] MEDS: METOCLOPRAMIDE HCL INJ/PF 10 MG/2 ML SDV IV PRN (23:08)
[2019-11-10] MEDS: ZOLPIDEM TARTRATE 5 MG TABLET PO PRN (23:08)
[2019-11-11] MEDS: METHYLPREDNISOLONE INJ 125 MG/2 ML SDV IV SCH ×5 (00:40→23:15)
[2019-11-11] MEDS: ONDANSETRON HCL INJ/PF 4 MG/2 ML SDV IV PRN ×3 (01:44→15:55)
[2019-11-11] MEDS: METOCLOPRAMIDE HCL INJ/PF 10 MG/2 ML SDV IV PRN ×3 (05:24→19:55)
[2019-11-11] MEDS: RINGERS SOLUTION,LACTATED 1,000 ML IV PRN ×2 (05:24→19:55)
[2019-11-11] MEDS: HYDROMORPHONE HCL INJ/PF 2 MG/ML AMPULE IV PRN ×4 (05:24→19:55)
[2019-11-11 05:43] LABS: ABSOLUTE LYMPHOCYTES (AUTO) 0.9 10^3/uL (0.5-4.7); ABSOLUTE MONOCYTES (AUTO) 0.4 10^3/uL (0.1-1.4); ABSOLUTE NEUT (AUTO) 12.2 10^3/uL (1.7-8.2); BASOPHILS % (AUTO) 0.2 % (0-2); HEMATOCRIT 37.8 % (36.0-47.0); HEMOGLOBIN 12.5 g/dL (12.0-15.5); LYMPHOCYTES % (AUTO) 6.8 % (13-45); MEAN CORPUSCULAR HEMOGLOBIN 28.4 pg (27.0-33.4); MEAN CORPUSCULAR VOLUME 86 fl (80-97); MONOCYTES % (AUTO) 2.9 % (3-13); PLATELET COUNT 232 10^3/uL (150-450); RED BLOOD COUNT 4.39 10^6/uL (3.72-5.28); RED CELL DISTRIBUTION WIDTH 13.4 % (11.5-14.0); SEGMENTED NEUTROPHILS % (AUTO) 90.1 % (42-78); TOTAL CELLS COUNTED % (AUTO) 100 %; WHITE BLOOD COUNT 13.6 10^3/uL (4.0-10.5)
[2019-11-11] MEDS: ENOXAPARIN SODIUM INJ 30 MG/0.3 ML DISP.SYRIN SUBCUT SCH (10:27)
[2019-11-11] MEDS: FAMOTIDINE INJ/PF 20 MG/2 ML SDV IV SCH ×2 (10:28→21:07)
--- NOTE | 2019-11-11 17:12 | PDOC PROGRESS REPORT ---
Subjective Progress Note for:: 11/11/19 Subjective:: She continues to complain of abdominal pain nausea and vomiting Improved however she does say she is better today. She has had less vomiting and abdominal pain Reason For Visit: CHROHNS EXACERBATION,ABDOMINAL PAIN Physical Exam Vital Signs: Temp Pulse Resp BP Pulse Ox 98.0 F 61 16 130/69 H 94 11/11/19 11:31 11/11/19 14:17 11/11/19 14:17 11/11/19 11:31 11/11/19 14:17 Intake & Output 11/10/19 11/11/19 11/12/19 06:59 06:59 06:59 Intake Total 1370 3311 354 Output Total 100 100 500 Balance 1270 3211 -146 Weight 116.1 kg 119 kg 119 kg General appearance: PRESENT: no acute distress, well-developed, well-nourished Head exam: PRESENT: atraumatic, normocephalic Eye exam: PRESENT: conjunctiva pink, EOMI, PERRLA. ABSENT: scleral icterus Ear exam: PRESENT: normal external ear exam Mouth exam: PRESENT: tongue midline Neck exam: ABSENT: carotid bruit, JVD, lymphadenopathy, thyromegaly Respiratory exam: PRESENT: clear to auscultation manasa. ABSENT: rales, rhonchi, wheezes Cardiovascular exam: PRESENT: RRR, +S1, +S2. ABSENT: diastolic murmur, rubs, systolic murmur Pulses: PRESENT: normal dorsalis pedis pul Vascular exam: PRESENT: normal capillary refill GI/Abdominal exam: PRESENT: normal bowel sounds, soft. ABSENT: distended, guarding, mass, organolmegaly, rebound, tenderness Rectal exam: PRESENT: deferred Extremities exam: PRESENT: full ROM. ABSENT: calf tenderness, clubbing, pedal edema Neurological exam: PRESENT: alert, awake, oriented to person, oriented to place, oriented to time, oriented to situation, CN II-XII grossly intact. ABSENT: motor sensory deficit Psychiatric exam: PRESENT: appropriate affect, normal mood. ABSENT: homicidal ideation, suicidal ideation Skin exam: PRESENT: dry, intact, warm. ABSENT: cyanosis, rash Results Laboratory Results: 11/11/19 05:14 11/10/19 05:44 11/11/19 05:14 WBC 13.6 H RBC 4.39 Hgb 12.5 Hct 37.8 MCV 86 MCH 28.4 MCHC 33.0 RDW 13.4 Plt Count 232 Seg Neutrophils % 90.1 H Impressions: Abdomen/Pelvis CT 11/09/19 13:08 IMPRESSION: 1. The mid to distal ileum is dilated with retention of small bowel contents and mild surrounding inflammatory change involving the terminal ileum, suspicious for distal ileal stricture leading to partial small bowel obstruction, probably associated with Crohn disease flare. There is no evidence of perforation or peritoneal abscess. 2. Appendix is normal. 3. Intrauterine device in the endometrium of the uterus. Assessment and Plan - Diagnosis (1) Crohn's disease Qualifiers: Gastrointestinal tract location: small intestine Digestive disease complication type: with intestinal obstruction Qualified Code(s): K50.012 - Crohn's disease of small intestine with intestinal obstruction Is this a current diagnosis for this admission?: Yes Plan: Acute flare leading to ileal stricture and small bowel obstruction. We will continue with high-dose Solu-Medrol as per my discussion with sheet cutter at [facility] input. As patient appears to be improving no surgical intervention needed at this time No other prevention warranted at this time. We will continue with supportive care. (2) Abdominal pain Is this a current diagnosis for this admission?: Yes Plan: This is secondary to above. Cont Dilaudid for pain control Cont Fluids prn (3) Small bowel obstruction Is this a current diagnosis for this admission?: Yes Plan: F/u imaging studies prn (4) Immunosuppression due to drug therapy Is this a current diagnosis for this admission?: Yes Plan: Patient is on Stelara. She also has a history of rheumatoid arthritis in addition to the longstanding Crohn's disease. She has fibromyalgia also - Plan Summary Summary: Will defer any antibiotic treatment for now but this will be reevaluated and started as appropriate - Time Time Spent with patient: 15-24 minutes Medications reviewed and adjusted accordingly: Yes Within: within 72 hours
[2019-11-11] MEDS: ZOLPIDEM TARTRATE 5 MG TABLET PO PRN (21:05)
[2019-11-12] MEDS: HYDROMORPHONE HCL INJ/PF 2 MG/ML AMPULE IV PRN ×6 (00:14→22:48)
[2019-11-12] MEDS: ONDANSETRON HCL INJ/PF 4 MG/2 ML SDV IV PRN ×3 (00:15→17:22)
[2019-11-12] MEDS: KETOROLAC TROMETHAMINE INJ/PF 30 MG/1 ML SDV IV PRN (03:14)
[2019-11-12] MEDS: RINGERS SOLUTION,LACTATED 1,000 ML IV PRN ×2 (04:21→18:31)
[2019-11-12] MEDS: METOCLOPRAMIDE HCL INJ/PF 10 MG/2 ML SDV IV PRN ×3 (04:22→22:47)
[2019-11-12 05:54] LABS: ABSOLUTE MONOCYTES (AUTO) 0.3 10^3/uL (0.1-1.4); ABSOLUTE NEUT (AUTO) 9.1 10^3/uL (1.7-8.2); EOSINOPHILS % (AUTO) 0.1 % (0-6); HEMATOCRIT 37.2 % (36.0-47.0); HEMOGLOBIN 12.3 g/dL (12.0-15.5); LYMPHOCYTES % (AUTO) 9.6 % (13-45); MEAN CORPUSCULAR HEMOGLOBIN 28.4 pg (27.0-33.4); MEAN CORPUSCULAR HGB CONC 32.9 g/dL (32.0-36.0); MEAN CORPUSCULAR VOLUME 86 fl (80-97); MONOCYTES % (AUTO) 2.6 % (3-13); PLATELET COUNT 239 10^3/uL (150-450); RED BLOOD COUNT 4.31 10^6/uL (3.72-5.28); RED CELL DISTRIBUTION WIDTH 13.3 % (11.5-14.0); SEGMENTED NEUTROPHILS % (AUTO) 87.7 % (42-78); TOTAL CELLS COUNTED % (AUTO) 100 %; WHITE BLOOD COUNT 10.4 10^3/uL (4.0-10.5)
[2019-11-12] MEDS: METHYLPREDNISOLONE INJ 125 MG/2 ML SDV IV SCH ×4 (06:07→23:08)
[2019-11-12 06:19] LABS: ANION GAP 10 (5-19); BLOOD UREA NITROGEN 9 mg/dL (7-20); CALCIUM 9.4 mg/dL (8.4-10.2); CARBON DIOXIDE 29 mmol/L (22-30); CHLORIDE 98 mmol/L (98-107); GLUCOSE 140 mg/dL (75-110)
[2019-11-12] MEDS: FAMOTIDINE INJ/PF 20 MG/2 ML SDV IV SCH ×2 (09:02→22:48)
[2019-11-12] MEDS: ENOXAPARIN SODIUM INJ 30 MG/0.3 ML DISP.SYRIN SUBCUT SCH (09:07)
--- NOTE | 2019-11-12 16:45 | PDOC PROGRESS REPORT ---
Subjective Progress Note for:: 11/12/19 Subjective:: Patient states she is still throwing up however improved. Still complains of some abdominal pain. Reason For Visit: CHROHNS EXACERBATION,ABDOMINAL PAIN Physical Exam Vital Signs: Temp Pulse Resp BP Pulse Ox 97.9 F 66 18 141/75 H 99 11/12/19 12:00 11/12/19 12:00 11/12/19 12:00 11/12/19 12:00 11/12/19 12:00 Intake & Output 11/11/19 11/12/19 11/13/19 06:59 06:59 06:59 Intake Total 3311 2472 1000 Output Total 100 1400 400 Balance 3211 1072 600 Weight 119 kg 119.4 kg General appearance: PRESENT: no acute distress, well-developed, well-nourished Head exam: PRESENT: atraumatic, normocephalic Eye exam: PRESENT: conjunctiva pink, EOMI, PERRLA. ABSENT: scleral icterus Ear exam: PRESENT: normal external ear exam Mouth exam: PRESENT: moist, tongue midline Neck exam: ABSENT: carotid bruit, JVD, lymphadenopathy, thyromegaly Respiratory exam: PRESENT: clear to auscultation manasa. ABSENT: rales, rhonchi, wheezes Cardiovascular exam: PRESENT: RRR. ABSENT: diastolic murmur, rubs, systolic murmur Pulses: PRESENT: normal dorsalis pedis pul Vascular exam: PRESENT: normal capillary refill GI/Abdominal exam: PRESENT: normal bowel sounds, soft, tenderness - mild epigastric. ABSENT: distended, guarding, mass, organolmegaly, rebound Rectal exam: PRESENT: deferred Extremities exam: PRESENT: full ROM. ABSENT: calf tenderness, clubbing, pedal edema Neurological exam: PRESENT: alert, awake, oriented to person, oriented to place, oriented to time, oriented to situation, CN II-XII grossly intact. ABSENT: motor sensory deficit Psychiatric exam: PRESENT: appropriate affect, normal mood. ABSENT: homicidal ideation, suicidal ideation Skin exam: PRESENT: dry, intact, warm. ABSENT: cyanosis, rash Results Laboratory Results: 11/12/19 05:15 11/12/19 05:15 11/12/19 11/12/19 05:15 05:15 WBC 10.4 RBC 4.31 Hgb 12.3 Hct 37.2 MCV 86 MCH 28.4 MCHC 32.9 RDW 13.3 Plt Count 239 Seg Neutrophils % 87.7 H Sodium 137.2 Potassium 4.0 Chloride 98 Carbon Dioxide 29 Anion Gap 10 BUN 9 Creatinine 0.70 Est GFR ( Amer) > 60 Glucose 140 H Calcium 9.4 Impressions: Abdomen/Pelvis CT 11/09/19 13:08 IMPRESSION: 1. The mid to distal ileum is dilated with retention of small bowel contents and mild surrounding inflammatory change involving the terminal ileum, suspicious for distal ileal stricture leading to partial small bowel obstruction, probably associated with Crohn disease flare. There is no evidence of perforation or peritoneal abscess. 2. Appendix is normal. 3. Intrauterine device in the endometrium of the uterus. Assessment and Plan - Diagnosis (1) Crohn's disease Qualifiers: Gastrointestinal tract location: small intestine Digestive disease comp lication type: with intestinal obstruction Qualified Code(s): K50.012 - Crohn's disease of small intestine with intestinal obstruction Is this a current diagnosis for this admission?: Yes Plan: Acute flare leading to ileal stricture and small bowel obstruction. We will continue with high-dose Solu-Medrol as per my discussion with adolescent counselor at [facility] input. I have explained to patient that if she continues to vomit an NG tube will be placed and she is agreeable to these. We will continue to watch (2) Abdominal pain Is this a current diagnosis for this admission?: Yes Plan: This is secondary to above. Cont Dilaudid for pain control Cont Fluids prn (3) Small bowel obstruction Is this a current diagnosis for this admission?: Yes Plan: NG tube if and when appropriate (4) Immunosuppression due to drug therapy Is this a current diagnosis for this admission?: Yes Plan: Next dose due Nov 19 or before - Time Time Spent with patient: 25-34 minutes Anticipated discharge: Home Within: within 72 hours
--- NOTE | 2019-11-12 16:50 | Progress Note ---
Provider Note Provider Note: To whom it may concern Patient was admitted to the hospital on 11/09/19. She remains in hospital and will likely be hospitalized through 11/16/2019. Please let me know if I can be of any further help. Dr. Aparicio
[2019-11-12] MEDS: ZOLPIDEM TARTRATE 5 MG TABLET PO PRN (22:48)
[2019-11-13] MEDS: ONDANSETRON HCL INJ/PF 4 MG/2 ML SDV IV PRN (01:09)
[2019-11-13] MEDS: HYDROMORPHONE HCL INJ/PF 2 MG/ML AMPULE IV PRN ×3 (05:01→19:57)
[2019-11-13] MEDS: METOCLOPRAMIDE HCL INJ/PF 10 MG/2 ML SDV IV PRN ×3 (05:02→19:57)
[2019-11-13] MEDS: METHYLPREDNISOLONE INJ 125 MG/2 ML SDV IV SCH ×3 (05:02→18:02)
[2019-11-13] MEDS: RINGERS SOLUTION,LACTATED 1,000 ML IV PRN ×2 (05:03→12:59)
[2019-11-13] MEDS: FAMOTIDINE INJ/PF 20 MG/2 ML SDV IV SCH ×2 (10:37→21:57)
[2019-11-13] MEDS: ENOXAPARIN SODIUM INJ 30 MG/0.3 ML DISP.SYRIN SUBCUT SCH (10:37)
[2019-11-13] MEDS ORDERED: ACETAMINOPHEN 325 MG TABLET NG PRN (12:00)
[2019-11-13] MEDS ORDERED: PROMETHAZINE HCL 25 MG TABLET NG PRN (12:00)
[2019-11-13] MEDS ORDERED: PHARMACY COMMUNICATION ORDER MC NR (12:00)
--- NOTE | 2019-11-13 12:01 | PDOC PROGRESS REPORT ---
Subjective Progress Note for:: 11/13/19 Subjective:: Patient continues to complain of abdominal pain. She states she is also still having nausea and vomiting. Reason For Visit: CHROHNS EXACERBATION,ABDOMINAL PAIN Physical Exam Vital Signs: Temp Pulse Resp BP Pulse Ox 98.6 F 53 L 14 138/82 H 100 11/13/19 08:00 11/13/19 08:00 11/13/19 08:00 11/13/19 08:00 11/13/19 08:00 Intake & Output 11/12/19 11/13/19 11/14/19 06:59 06:59 06:59 Intake Total 2472 2100 Output Total 1400 1000 Balance 1072 1100 Weight 119.4 kg 120 kg General appearance: PRESENT: no acute distress, well-developed, well-nourished Head exam: PRESENT: atraumatic, normocephalic Eye exam: PRESENT: conjunctiva pink, EOMI, PERRLA. ABSENT: scleral icterus Ear exam: PRESENT: normal external ear exam Mouth exam: PRESENT: tongue midline Neck exam: ABSENT: carotid bruit, JVD, lymphadenopathy, thyromegaly Respiratory exam: PRESENT: clear to auscultation manasa, unlabored. ABSENT: rales, rhonchi, wheezes Cardiovascular exam: PRESENT: RRR, +S1, +S2. ABSENT: diastolic murmur, rubs, systolic murmur GI/Abdominal exam: PRESENT: normal bowel sounds, soft, tenderness - Mild epigastric. ABSENT: distended, guarding, mass, organolmegaly, rebound Rectal exam: PRESENT: deferred Extremities exam: PRESENT: full ROM. ABSENT: calf tenderness, clubbing, pedal edema Neurological exam: PRESENT: alert, awake, oriented to person, oriented to place, oriented to time, oriented to situation, CN II-XII grossly intact. ABSENT: mot or sensory deficit Psychiatric exam: PRESENT: appropriate affect, normal mood. ABSENT: homicidal ideation, suicidal ideation Skin exam: PRESENT: dry, intact, warm. ABSENT: cyanosis, rash Results Laboratory Results: 11/12/19 05:15 11/12/19 05:15 Impressions: Abdomen/Pelvis CT 11/09/19 13:08 IMPRESSION: 1. The mid to distal ileum is dilated with retention of small bowel contents and mild surrounding inflammatory change involving the terminal ileum, suspicious for distal ileal stricture leading to partial small bowel obstruction, probably associated with Crohn disease flare. There is no evidence of perforation or peritoneal abscess. 2. Appendix is normal. 3. Intrauterine device in the endometrium of the uterus. Assessment and Plan - Diagnosis (1) Crohn's disease Qualifiers: Gastrointestinal tract location: small intestine Digestive disease complication type: with intestinal obstruction Qualified Code(s): K50.012 - Crohn's disease of small intestine with intestinal obstruction Is this a current diagnosis for this admission?: Yes Plan: Acute flare leading to ileal stricture and small bowel obstruction. We will continue with high-dose Solu-Medrol as per my discussion with molybdenum steamer operator at [facility]. This was started on November 09. [facility] input. The plan is to put an NG tube today. Repeat CT scan. If needed will need to recontact GI at [facility] at [phone]. There is been no GI available for consultation at this hospital and there was no bed available for transfer to [facility] (2) Abdominal pain Is this a current diagnosis for this admission?: Yes Plan: This is secondary to above. Cont Dilaudid for pain control Cont Fluids prn (3) Small bowel obstruction Is this a current diagnosis for this admission?: Yes Plan: Follow-up CT scan today (4) Immunosuppression due to drug therapy Is this a current diagnosis for this admission?: Yes Plan: Next dose of Stelara due Nov 19 or before (5) Morbid obesity with BMI of 40.0-44.9, adult Is this a current diagnosis for this admission?: Yes Plan: She will benefit from weight loss - Time Time Spent with patient: 25-34 minutes
[2019-11-13] MEDS ORDERED: LORAZEPAM INJ 2 MG/1 ML VIAL IV ONE (15:30)
--- NOTE | 2019-11-13 19:40 | RADIOLOGY REPORT (SQ) ---
EXAM DESCRIPTION: CT ABD/PELVIS ORAL ONLY COMPLETED DATE/TIME: 11/13/2019 7:26 pm REASON FOR STUDY: Crohn's with stricture COMPARISON: 11/09/2019 TECHNIQUE: CT scan of the abdomen and pelvis performed without intravenous with oral contrast. Image s reviewed with lung, soft tissue, and bone windows. Reconstructed coronal and sagittal MPR images re viewed. All images stored on PACS. All CT scanners at this facility use dose modulation, iterative reconstruction, and/or weight based d osing when appropriate to reduce radiation dose to as low as reasonably achievable (ALARA). [facility]: Dose Right [facility]: CareDose [facility]: Dose Right [facility]: Teradose 4D [facility]: [employer] RADIATION DOSE: CT Rad equipment meets quality standard of care and radiation dose reduction techniq ues were employed. CTDIvol: 18.7 mGy. DLP: 1001 mGy-cm.mGy. LIMITATIONS: None. FINDINGS: LOWER CHEST: No significant findings. No nodules or infiltrates. NON-CONTRASTED LIVER, SPLEEN, ADRENALS: Evaluation limited by lack of IV contrast. No identified sign ificant masses. PANCREAS: No masses. No peripancreatic inflammatory changes. GALLBLADDER: Surgically absent. RIGHT KIDNEY AND URETER: No suspicious masses. Assessment limited by lack of IV contrast. No signif icant calcifications. No hydronephrosis or hydroureter. LEFT KIDNEY AND URETER: No suspicious masses. Assessment limited by lack of IV contrast. No signifi cant calcifications. No hydronephrosis or hydroureter. AORTA AND RETROPERITONEUM: No aneurysm. No retroperitoneal masses or adenopathy. BOWEL AND PERITONEAL CAVITY: Long segment of distal ileum with bowel wall thickening to 7 mm. Segmen t approximately 10 cm in length. This is proximal to the terminal ileum. This is the area of previo usly noted dilatation. APPENDIX: Normal. PELVIS, BLADDER, AND ABDOMINAL WALL:No abnormal masses. No free fluid. Bladder normal. BONES: No significant findings. OTHER: No other significant finding. IMPRESSION: Site of small bowel dilatation on the previous study is now a lungs segment of distal il eum with bowel wall thickening but no obstruction. Proximal to the terminal ileum. Suspicious for i nflammatory bowel disease, particularly Crohn's disease. COMMENT: Quality ID # 436: Final reports with documentation of one or more dose reduction techniques (e.g., Automated exposure control, adjustment of the mA and/or kV according to patient size, use of iterative reconstruction technique) TECHNICAL DOCUMENTATION: JOB ID: [id number] 2010 [email or web address]- All Rights Reserved Reading location - IP/workstation name: [email or web address]
[2019-11-13] MEDS: ZOLPIDEM TARTRATE 5 MG TABLET NG PRN (21:55)
[2019-11-13] MEDS: KETOROLAC TROMETHAMINE INJ/PF 30 MG/1 ML SDV IV PRN (21:55)
[2019-11-14] MEDS: METHYLPREDNISOLONE INJ 125 MG/2 ML SDV IV SCH ×3 (00:07→16:44)
[2019-11-14] MEDS ORDERED: PROMETHAZINE HCL INJ 50 MG/1 ML VIAL IM PRN (00:12)
[2019-11-14 04:45] LABS: HEMATOCRIT 35.1 % (36.0-47.0); HEMOGLOBIN 11.8 g/dL (12.0-15.5); MEAN CORPUSCULAR HEMOGLOBIN 28.5 pg (27.0-33.4); MEAN CORPUSCULAR HGB CONC 33.7 g/dL (32.0-36.0); MEAN CORPUSCULAR VOLUME 84 fl (80-97); PLATELET COUNT 186 10^3/uL (150-450); RED BLOOD COUNT 4.16 10^6/uL (3.72-5.28); RED CELL DISTRIBUTION WIDTH 13.2 % (11.5-14.0); WHITE BLOOD COUNT 6.6 10^3/uL (4.0-10.5)
[2019-11-14 04:46] LABS: INTERNATIONAL RATION (INR) 1.04; PROTHROMBIN TIME 13.6 SEC (11.4-15.4)
[2019-11-14 05:02] LABS: ALBUMIN 3.4 g/dL (3.5-5.0); ALKALINE PHOSPHATASE 53 U/L (38-126); ANION GAP 5 (5-19); ASPARTATE AMINO TRANSFERASE 45 U/L (14-36); BILIRUBIN,TOTAL 0.4 mg/dL (0.2-1.3); BLOOD UREA NITROGEN 10 mg/dL (7-20); CARBON DIOXIDE 35 mmol/L (22-30); CHLORIDE 97 mmol/L (98-107); GLUCOSE 118 mg/dL (75-110); POTASSIUM 3.6 mmol/L (3.6-5.0); TOTAL PROTEIN 6.2 g/dL (6.3-8.2)
[2019-11-14 05:21] LABS: ABSOLUTE LYMPHOCYTES# (MANUAL) 1.5 10^3/uL (0.5-4.7); ABSOLUTE MONOCYTES # (MANUAL) 0.7 10^3/uL (0.1-1.4); BASOPHILS % (MANUAL) 0 % (0-2); EOSINOPHILS % (MANUAL) 0 % (0-6); LYMPHOCYTES % (MANUAL) 23 % (13-45); MONOCYTES % (MANUAL) 10 % (3-13); RBC MORPHOLOGY COMMENT NORMO-CYTIC/CHROMIC; SEGMENTED NEUTROPHILS % (MAN) 67 % (42-78); TOTAL CELLS COUNTED 100
[2019-11-14 05:22] LABS: PLATELET COMMENT ADEQUATE
[2019-11-14] MEDS: OXYCODONE HCL IR 5 MG TABLET PO PRN ×2 (08:00→13:05)
[2019-11-14] MEDS: ENOXAPARIN SODIUM INJ 30 MG/0.3 ML DISP.SYRIN SUBCUT SCH (10:08)
[2019-11-14] MEDS: FAMOTIDINE INJ/PF 20 MG/2 ML SDV IV SCH ×2 (10:24→21:24)
--- NOTE | 2019-11-14 16:27 | RADIOLOGY REPORT (SQ) ---
EXAM DESCRIPTION: PICC INSERTION; FLUORO/CV PLACEMENT; U/S GUIDE FOR VASCULAR ACCESS COMPLETED DATE/TIME: 11/14/2019 4:05 pm REASON FOR STUDY: loss of PIV; IV ACCESS COMPARISON: None. FLUOROSCOPY TIME: 6 minutes 35 seconds. 3 images saved to PACS. TECHNIQUE: Fluoroscopic and ultrasound guided PICC placement. LIMITATIONS: None. PROCEDURE: After written consent and assessment were obtained, the patient was brought into the fluo roscopy room and placed supine on the table. Ultrasound evaluation of potential access sites were per formed. After successfully identifying a patent left basilic vein, the left arm was prepped and drape d in a sterile fashion along with the ultrasound probe. The entry site was anesthetized with 1% lidoc tawana. A 21 gauge 7 cm needle was advanced through the skin and into the basilic vein under live ultra sound guidance. An ultrasound image was saved to PACS confirming access site. A .018 guide wire was then inserted through the needle and into the venous system. The needle was then removed and an 11 b lade scalpel was used to make a 1cm skin incision. A 5 fr peel-away sheath was advanced over the wir e and into the venous system. A measurement was then made using the existing wire and live fluoroscop ic guidance. The wire was then removed and trimmed. The PICC was advanced through the peel-away sheat h and into the venous system. The peel-away sheath was removed and the catheter was adhered to the pa tients arm with a stat lock. The catheter was then aspirated and flushed and a sterile bandage was pl aced over the access site. Due to the patient's underlying anatomy, it was difficult to advance the catheter past the junction of the brachiocephalic vein with the superior vena cava. A few times the catheter was advanced into the region of the cavoatrial junction but would not consistently remain at this level. The catheter was finally positioned at the junction between the brachiocephalic vein an d the superior vena cava. 10 mL of Omnipaque 300 was injected during the procedure to evaluate the p osition of the catheter. IMPRESSION: SUCCESSFUL PLACEMENT OF A 5 FR DUAL LUMEN 41 CM PICC IN THE LEFT BASILIC VEIN. COMMENT: Patient medication list reviewed: Yes- Quality ID# 130:Eligible professional attests to doc umenting in the medical record they obtained, updated, or reviewed the patient's current medications. . Quality ID 145: Final reports for procedures using fluoroscopy that document radiation exposure pastor talib, or exposure time and number of fluorographic images (if radiation exposure indices are not avail able) Quality ID #76: The patient was prepped and draped using maximum sterile barrier technique including cap, mask, sterile gown, sterile gloves, a large sterile sheet, hand hygiene, and 2% Chlorhexidine fo r cutaneous antisepsis. When ultrasound is used, sterile ultrasound techniques are followed requiring sterile gel and sterile probes. TECHNICAL DOCUMENTATION: JOB ID: [id number] 2010 [employer]- All Rights Reserved rev-02/18 Reading location - IP/workstation name: [email or web address]
[2019-11-14] MEDS: RINGERS SOLUTION,LACTATED 1,000 ML IV PRN (17:09)
[2019-11-14] MEDS: HYDROMORPHONE HCL INJ/PF 2 MG/ML AMPULE IV PRN ×2 (17:10→21:25)
[2019-11-14] MEDS: ONDANSETRON HCL INJ/PF 4 MG/2 ML SDV IV PRN ×2 (17:10→21:24)
--- NOTE | 2019-11-14 17:23 | PDOC PROGRESS REPORT ---
Subjective Progress Note for:: 11/14/19 Subjective:: The patient is a 39-year-old female with a past medical history of Crohn's disease (followed by [facility]; Dr. Bagley/Rebecca Russo @[id number]), GERD, arthritis, fibromyalgia, depression, B12 deficiency with anemia, and morbid obesity who was admitted 11/09/2019 with a Crohn's exacerbation. Patient was seen on morning rounds. She is found resting in bed, comfortably, on room air. She does endorse continued abdominal discomfort with nausea but no emesis. She did have a loose bowel movement today. She request to advance her diet to full liquid to that she may attempt a milkshake; she is cautioned that if she has worsening abdominal discomfort or nausea we will need to resume n.p.o. status. Unfortunately, the patient lost IV access overnight and has extremely poor options for peripheral IV; she is agreeable to PICC line today. Otherwise she denies fever, chills, chest pain, palpitations, dyspnea, cough. She has no other questions or concerns at this time. No concerns per nursing. Reason For Visit: CHROHNS EXACERBATION,ABDOMINAL PAIN Physical Exam Vital Signs: Temp Pulse Resp BP Pulse Ox 98.4 F 82 16 134/66 H 100 11/14/19 11:53 11/14/19 11:53 11/14/19 11:53 11/14/19 11:53 11/14/19 11:53 Intake & Output 11/13/19 11/14/19 11/15/19 06:59 06:59 06:59 Intake Total 2100 2252 Output Total 1000 300 Balance 1100 1952 Weight 120 kg 120.8 kg General appearance: PRESENT: no acute distress, cooperative, morbidly obese, well-developed, well-nourished Head exam: PRESENT: atraumatic, normocephalic Eye exam: PRESENT: conjunctiva pink, EOMI, PERRLA. ABSENT: scleral icterus Ear exam: PRESENT: normal external ear exam Mouth exam: PRESENT: moist, tongue midline Neck exam: ABSENT: carotid bruit, JVD, lymphadenopathy, thyromegaly Respiratory exam: PRESENT: clear to auscultation manasa, symmetrical, unlabored. ABSENT: rales, rhonchi, wheezes Cardiovascular exam: PRESENT: RRR, +S1, +S2. ABSENT: diastolic murmur, rubs, s ystolic murmur Pulses: PRESENT: normal dorsalis pedis pul Vascular exam: PRESENT: normal capillary refill GI/Abdominal exam: PRESENT: normal bowel sounds, soft, tenderness. ABSENT: distended, guarding, mass, organolmegaly, rebound Rectal exam: PRESENT: deferred Extremities exam: PRESENT: full ROM. ABSENT: calf tenderness, clubbing, pedal edema Neurological exam: PRESENT: alert, awake, oriented to person, oriented to place, oriented to time, oriented to situation, CN II-XII grossly intact. ABSENT: motor sensory deficit Psychiatric exam: PRESENT: appropriate affect, normal mood. ABSENT: homicidal ideation, suicidal ideation Skin exam: PRESENT: dry, intact, warm. ABSENT: cyanosis, rash Results Laboratory Results: 11/14/19 03:56 11/14/19 03:56 11/14/19 11/14/19 03:56 03:56 WBC 6.6 RBC 4.16 Hgb 11.8 L Hct 35.1 L MCV 84 MCH 28.5 MCHC 33.7 RDW 13.2 Plt Count 186 Seg Neutrophils % Not Reportable Sodium 137.0 Potassium 3.6 Chloride 97 L Carbon Dioxide 35 H Anion Gap 5 BUN 10 Creatinine 0.77 Est GFR ( Amer) > 60 Glucose 118 H Calcium 9.0 Magnesium 2.4 H Total Bilirubin 0.4 AST 45 H Alkaline Phosphatase 53 Total Protein 6.2 L Albumin 3.4 L 11/09/19 13:56 Blood Blood Culture - Final NO GROWTH IN 5 DAYS Impressions: Guidance Fluoroscopy 11/14/19 00:00 IMPRESSION: SUCCESSFUL PLACEMENT OF A 5 FR DUAL LUMEN 41 CM PICC IN THE LEFT BASILIC VEIN. Interventional Vascular Procedure 11/14/19 00:00 IMPRESSION: SUCCESSFUL PLACEMENT OF A 5 FR DUAL LUMEN 41 CM PICC IN THE LEFT BASILIC VEIN. PICC Line Insertion 11/14/19 00:00 IMPRESSION: SUCCESSFUL PLACEMENT OF A 5 FR DUAL LUMEN 41 CM PICC IN THE LEFT BASILIC VEIN. Assessment and Plan - Diagnosis (1) Crohn's disease Qualifiers: Gastrointestinal tract location: small intestine Digestive disease complication type: with intestinal obstruction Qualified Code(s): K50.012 - Crohn's disease of small intestine with intestinal obstruction Is this a current diagnosis for this admission?: Yes Plan: Acute flare leading to ileal stricture and small bowel obstruction. Follow-up CT with IV contrast pending. Previous provider discussed patient's case with [facility] gastroenterology. We will continuewith high-dose Solu-Medrol as per their recommendations.. This was started on November 09. [facility] input. Patient did receive NG tube yesterday, however, this was removed per patient. She has had nausea but without emesis since removal. Follow-up CT showed resolution of SBO. We will cautiously advance to full liquid diet. Analgesics and antiemetics as needed. Continue IV fluids until taking adequate p.o. (2) Abdominal pain Is this a current diagnosis for this admission?: Yes Plan: This is secondary to above. Cont Dilaudid for pain control Remaining management as above. (3) Immunosuppression due to drug therapy Is this a current diagnosis for this admission?: Yes Plan: Next dose of Stelara due Nov 19 or before (4) Morbid obesity with BMI of 40.0-44.9, adult Is this a current diagnosis for this admission?: Yes Plan: She will benefit from weight loss BMI 43.0. Lifestyle modification and dietary discretion advised. (5) Small bowel obstruction Is this a current diagnosis for this admission?: Yes Plan: Follow-up CT scan yesterday shows resolution of SBO. - Time Time Spent with patient: 25-34 minutes Medications reviewed and adjusted accordingly: Yes Anticipated discharge: Home Within: within 48 hours
--- NOTE | 2019-11-14 17:25 | RADIOLOGY REPORT (SQ) ---
EXAM DESCRIPTION: CT ABD/PELVIS WITH IV ONLY COMPLETED DATE/TIME: 11/14/2019 4:30 pm REASON FOR STUDY: abd pain COMPARISON: 11/13/2009 TECHNIQUE: CT scan of the abdomen and pelvis performed using helical scanning technique with dynamic intravenous contrast injection. No oral contrast. Images reviewed with lung, soft tissue, and bone windows. Reconstructed coronal and sagittal MPR images reviewed. Delayed images for evaluation of the urinary system also acquired. All images stored on PACS. All CT scanners at this facility use dose modulation, iterative reconstruction, and/or weight based d osing when appropriate to reduce radiation dose to as low as reasonably achievable (ALARA). [facility]: Dose Right [facility]: CareDose [facility]: Dose Right [facility]: Teradose 4D [facility]: WISHI CONTRAST TYPE AND DOSE: Contrast type and dose not recorded here. Refer to technologist's notes. RENAL FUNCTION: None required. The patient is less than 50 years old. RADIATION DOSE: CT Rad equipment meets quality standard of care and radiation dose reduction techniq ues were employed. CTDIvol: 21.1 - 21.1 mGy. DLP: 2597 mGy-cm.. LIMITATIONS: None. FINDINGS: LOWER CHEST: No significant findings. No nodules or infiltrates. LIVER: Normal size. No masses. No dilated ducts. SPLEEN: Normal size. No focal lesions. PANCREAS: No masses. No significant calcifications. No adjacent inflammation or peripancreatic fluid collections. Pancreatic duct not dilated. GALLBLADDER: Surgically absent. ADRENAL GLANDS: No significant masses or asymmetry. RIGHT KIDNEY AND URETER: No solid masses. No significant calcifications. No hydronephrosis or hyd roureter. LEFT KIDNEY AND URETER: No solid masses. No significant calcifications. No hydronephrosis or hydr oureter. AORTA AND VESSELS: No aneurysm. No dissection. Renal arteries, SMA, celiac without stenosis. RETROPERITONEUM: No retroperitoneal adenopathy, hemorrhage or masses. BOWEL AND PERITONEAL CAVITY: Previously demonstrated thick-walled segment of the terminal ileum is no longer thick-walled. No bowel mass or inflammatory change at this time. APPENDIX: Normal. PELVIS: No mass. No free fluid. Normal bladder. ABDOMINAL WALL: No masses. No hernias. BONES: No significant or acute findings. OTHER: No other significant finding. IMPRESSION: Wall thickening in the terminal ileum has resolved. No acute finding in the abdomen or pelvis. TECHNICAL DOCUMENTATION: JOB ID: [id number] Quality ID # [id number]: Final reports with documentation of one or more dose reduction techniques (e.g., Au tomated exposure control, adjustment of the mA and/or kV according to patient size, use of iterative reconstruction technique) 2010 [employer]- All Rights Reserved Reading location - IP/workstation name: [email or web address]
[2019-11-14] MEDS: NORMAL SALINE 10 ML SDV (SCHEDULED) IV SCH (21:24)
[2019-11-14] MEDS: ZOLPIDEM TARTRATE 5 MG TABLET NG PRN (23:02)
[2019-11-15] MEDS: METHYLPREDNISOLONE INJ 125 MG/2 ML SDV IV SCH ×2 (00:11→05:39)
[2019-11-15] MEDS: NORMAL SALINE 10 ML SDV (AFTER EACH USE) IV PRN ×2 (00:12→05:39)
[2019-11-15] MEDS: HYDROMORPHONE HCL INJ/PF 2 MG/ML AMPULE IV PRN (05:37)
[2019-11-15] MEDS: RINGERS SOLUTION,LACTATED 1,000 ML IV PRN (05:40)
[2019-11-15] MEDS ORDERED: OXYCODONE-ACETAMINOPHEN 5-325 MG TABLET PO PRN (08:28)
[2019-11-15] MEDS: PROMETHAZINE HCL INJ 25 MG/1 ML VIAL IV PRN ×2 (08:45→12:59)
[2019-11-15] MEDS: OXYCODONE-ACETAMINOPHEN 5-325 MG TABLET PO PRN ×2 (08:45→12:59)
[2019-11-15] MEDS ORDERED: FAMOTIDINE 20 MG TABLET PO SCH (10:00)
[2019-11-15] MEDS: NORMAL SALINE 10 ML SDV (SCHEDULED) IV SCH (10:48)
[2019-11-15] MEDS: ENOXAPARIN SODIUM INJ 30 MG/0.3 ML DISP.SYRIN SUBCUT SCH (10:49)
[2019-11-15] MEDS ORDERED: METHYLPREDNISOLONE INJ 125 MG/2 ML SDV IV SCH (12:00)
--- NOTE | 2019-11-15 16:17 | PDOC DISCHARGE SUMMARY ---
Impression - Admit/DC Date/PCP Admission Date/Primary Care Provider: 11/09/19 16:41 RENETTA MAGANA MD Discharge Date: 11/15/19 - Discharge Diagnosis (1) Crohn's disease Is this a current diagnosis for this admission?: Yes (2) Abdominal pain Is this a current diagnosis for this admission?: Yes (3) Immunosuppression due to drug therapy Is this a current diagnosis for this admission?: Yes (4) Morbid obesity with BMI of 40.0-44.9, adult Is this a current diagnosis for this admission?: Yes (5) Small bowel obstruction Is this a current diagnosis for this admission?: Yes - Additional Information Resuscitation Status: Full Code Discharge Diet: As Tolerated Discharge Activity: Activity As Tolerated, Balance Activity w/Rest Referrals: RENETTA MAGANA MD [Primary Care Provider] - 11/22/19 9:15 am Prescriptions: Prednisone [Deltasone 20 mg Tablet] 20 mg PO ASDIR PRN #20 tablet PRN Reason: Oxycodone HCl/Acetaminophen [Percocet 5-325 mg Tablet] 1 tab PO Q4HP PRN #20 tablet PRN Reason: Promethazine HCl [Phenergan 25 mg Supp.rect] 1 supp HI Q6H #6 supp.rect Promethazine HCl [Phenergan 25 mg Tablet] 25 mg PO Q6HP PRN #12 tablet PRN Reason: Home Medications: Ustekinumab [Stelara] 90 mg SQ [id number] 11/09/19 Acetaminophen [Tylenol 325 mg Tablet] 650 mg NG Q4HP PRN #0 tablet 11/15/19 Glucagon,Human Recombinant [Glucagen Inj 1 mg Vial] 1 mg SUBCUT PRN PRN vial 11/15/19 Oxycodone HCl/Acetaminophen [Percocet 5-325 mg Tablet] 1 tab PO Q4HP PRN #20 tablet 11/15/19 Prednisone [Deltasone 20 mg Tablet] 20 mg PO ASDIR PRN #20 tablet 11/15/19 Promethazine HCl [Phenergan 25 mg Supp.rect] 1 supp HI Q6H #6 supp.rect 11/15/19 Promethazine HCl [Phenergan 25 mg Tablet] 25 mg PO Q6HP PRN #12 tablet 11/15/19 History of Present Illiness History of Present Illness: Per H&P by Dr. Aparicio: CINDY BRAY is a 39 year old female Presents with acute onset upper abdominal pain which started about 7 PM last night. She also complained of nausea and vomiting associated with the symptoms. She says that she had been doing well prior to that. She has a history of a Crohn's disease for about 12 years. It appears she has had numerous complications before including strictures but she has never had to have surgery. She had a last colonoscopy in 2013. She is usually followed at [facility] and sees Dr. Bagley/Rebecca Russo @[phone] although her last visit was in March 2018. She states she had been doing well and has been seeing her local assistive technology trainer as well as PCP. She is on Stelara which she takes every month. She was found to have a significant distal ileal stricture leading to partial small bowel obstruction today on the CAT scan. There is no evidence of perforation or peritoneal abscess. The mid to distal ileum is dilated with retention of small bowel contents mild surrounding inflammation around the terminal ileum. Hospital Course Hospital Course: (1) Crohn's disease Significantly improved. Acute flare leading to ileal stricture and small bowel obstruction. Resolved on follow-up CT imagining. The patient was admitted to the medical floor and supported with IV fluids. The patient's case was discussed with [facility] where she is an established patient. Per their recommendations, she was placed on high-dose IV Solu-Medrol; received 6 days of therapy. She is discharged on a prolonged prednisone taper. Surgery was consulted; fortunately did not require surgical intervention. She did briefly have an NG tube, however this was removed by the patient. She had no further episodes of nausea or emesis and so this was left out. She was provided analgesics and antiemetics as needed. She was cautiously advanced to clears which she tolerated well and then to full liquids per patient request. At this time, her IV analgesics were transitioned to p.o. which continued to adequately control her discomfort. Her last episodes of emesis and diarrhea were >24 hours previously. She is discharged to home in stable condition with recommendations to follow-up with her primary care provider within 1 week. She is advised to contact her GI specialist at [facility], notify them of her admission, and follow-up as directed. She is advised to take her medications as prescribed. Drink plenty of fluids and advance her diet slowly. Finally she is encouraged to return emergency department as needed for any concerning symptoms. (2) Abdominal pain Secondary to #1 Significantly improved; now well controlled on p.o. medications. (3) Immunosuppression due to drug therapy Resume home dose Stelara (4) Morbid obesity with BMI of 40.0-44.9, adult She will benefit from weight loss BMI 43.0. Lifestyle modification and dietary discretion advised. (5) Small bowel obstruction Follow-up CT scans show resolution of SBO. Now tolerating p.o. intake without worsened symptoms. Physical Exam Vital Signs: Temp Pulse Resp BP Pulse Ox 98.6 F 68 18 145/78 H 94 11/15/19 15:11 11/15/19 15:11 11/15/19 15:11 11/15/19 15:11 11/15/19 15:11 Intake & Output 11/14/19 11/15/19 11/16/19 06:59 06:59 06:59 Intake Total 2252 1480 400 Output Total 300 Balance 195 1480 400 Weight 120.8 kg 120.6 kg 120.6 kg General appearance: PRESENT: no acute distress, cooperative, morbidly obese, well-developed, well-nourished Head exam: PRESENT: atraumatic, normocephalic Eye exam: PRESENT: conjunctiva pink, EOMI, PERRLA. ABSENT: scleral icterus Ear exam: PRESENT: normal external ear exam Mouth exam: PRESENT: moist, tongue midline Respiratory exam: PRESENT: clear to auscultation manasa, symmetrical, unlabored. ABSENT: rales, rhonchi, wheezes Cardiovascular exam: PRESENT: RRR. ABSENT: diastolic murmur, rubs, systolic murmur Vascular exam: PRESENT: normal capillary refill GI/Abdominal exam: PRESENT: normal bowel sounds, soft. ABSENT: distended, guarding, mass, organolmegaly, rebound, tenderness Rectal exam: PRESENT: deferred Extremities exam: PRESENT: full ROM. ABSENT: calf tenderness, clubbing, pedal edema Musculoskeletal exam: PRESENT: ambulatory Neurological exam: PRESENT: alert, awake, oriented to person, oriented to place, oriented to time, oriented to situation, CN II-XII grossly intact. ABSENT: motor sensory deficit Psychiatric exam: PRESENT: appropriate affect, normal mood. ABSENT: homicidal ideation, suicidal ideation Skin exam: PRESENT: dry, intact, warm. ABSENT: cyanosis, rash Results Laboratory Results: WBC 6.6 10^3/uL (4.0-10.5) 11/14/19 03:56 RBC 4.16 10^6/uL (3.72-5.28) 11/14/19 03:56 Hgb 11.8 g/dL (12.0-15.5) L 11/14/19 03:56 Hct 35.1 % (36.0-47.0) L 11/14/19 03:56 MCV 84 fl (80-97) 11/14/19 03:56 MCH 28.5 pg (27.0-33.4) 11/14/19 03:56 MCHC 33.7 g/dL (32.0-36.0) 11/14/19 03:56 RDW 13.2 % (11.5-14.0) 11/14/19 03:56 Plt Count 186 10^3/uL (150-450) 11/14/19 03:56 Lymph % (Auto) Not Reportable 11/14/19 03:56 [place] % (Auto) Not Reportable 11/14/19 03:56 Eos % (Auto) Not Reportable 11/14/19 03:56 Baso % (Auto) Not Reportable 11/14/19 03:56 Absolute Neuts (auto) Not Reportable 11/14/19 03:56 Absolute Lymphs (auto) Not Reportable 11/14/19 03:56 Absolute Monos (auto) Not Reportable 11/14/19 03:56 Absolute Eos (auto) Not Reportable 11/14/19 03:56 Absolute Basos (auto) Not Reportable 11/14/19 03:56 Total Counted 100 11/14/19 03:56 Seg Neutrophils % Not Reportable 11/14/19 03:56 Seg Neuts % (Manual) 67 % (42-78) 11/14/19 03:56 Lymphocytes % (Manual) 23 % (13-45) 11/14/19 03:56 Monocytes % (Manual) 10 % (3-13) 11/14/19 03:56 Eosinophils % (Manual) 0 % (0-6) 11/14/19 03:56 Basophils % (Manual) 0 % (0-2) 11/14/19 03:56 Abs Neuts (Manual) 4.4 10^3/uL (1.7-8.2) 11/14/19 03:56 Abs Lymphs (Manual) 1.5 10^3/uL (0.5-4.7) 11/14/19 03:56 Abs Monocytes (Manual) 0.7 10^3/uL (0.1-1.4) 11/14/19 03:56 Absolute Eos (Manual) 0.0 10^3/uL (0.0-0.6) 11/14/19 03:56 Abs Basophils (Manual) 0.0 10^3/uL (0.0-0.2) 11/14/19 03:56 Platelet Comment ADEQUATE 11/14/19 03:56 RBC Morph Comment NORMO-CYTIC/CHROMIC 11/14/19 03:56 ESR 43 mm/hr (0-20) H 11/09/19 10:43 PT 13.6 SEC (11.4-15.4) 11/14/19 03:56 INR 1.04 11/14/19 03:56 Sodium 137.0 mmol/L (137-145) 11/14/19 03:56 Potassium 3.6 mmol/L (3.6-5.0) 11/14/19 03:56 Chloride 97 mmol/L (98-107) L 11/14/19 03:56 Carbon Dioxide 35 mmol/L (22-30) H 11/14/19 03:56 Anion Gap 5 (5-19) 11/14/19 03:56 BUN 10 mg/dL (7-20) 11/14/19 03:56 Creatinine 0.77 mg/dL (0.52-1.25) 11/14/19 03:56 Est GFR ( Amer) > 60 (>60) 11/14/19 03:56 Est GFR (MDRD) Non-Af > 60 (>60) 11/14/19 03:56 Glucose 118 mg/dL (75-110) H 11/14/19 03:56 Calcium 9.0 mg/dL (8.4-10.2) 11/14/19 03:56 Magnesium 2.4 mg/dL (1.6-2.3) H 11/14/19 03:56 Total Bilirubin 0.4 mg/dL (0.2-1.3) 11/14/19 03:56 Direct Bilirubin 0.0 mg/dL (0.0-0.4) 11/14/19 03:56 Neonat Total Bilirubin Not Reportable 11/14/19 03:56 Neonat Direct Bilirubin Not Reportable 11/14/19 03:56 Neonat Indirect Bili Not Reportable 11/14/19 03:56 AST 45 U/L (14-36) H 11/14/19 03:56 ALT 61 U/L (<35) 11/14/19 03:56 Alkaline Phosphatase 53 U/L (38-126) 11/14/19 03:56 C-Reactive Protein 9.9 mg/L (<10.0) 11/09/19 10:43 Total Protein 6.2 g/dL (6.3-8.2) L 11/14/19 03:56 Albumin 3.4 g/dL (3.5-5.0) L 11/14/19 03:56 Lipase 37.3 U/L (23-300) 11/09/19 10:43 Urine Color YELLOW 11/09/19 21:40 Urine Appearance TURBID 11/09/19 21:40 Urine pH 5.0 (5.0-9.0) 11/09/19 21:40 Ur Specific [place] 1.033 11/09/19 21:40 Urine Protein 30 mg/dL (NEGATIVE) H 11/09/19 21:40 Urine Glucose (UA) 50 mg/dL (NEGATIVE) H 11/09/19 21:40 Urine Ketones TRACE mg/dL (NEGATIVE) H 11/09/19 21:40 Urine Blood SMALL (NEGATIVE) H 11/09/19 21:40 Urine Nitrite NEGATIVE (NEGATIVE) 11/09/19 21:40 Urine Bilirubin NEGATIVE (NEGATIVE) 11/09/19 21:40 Urine Urobilinogen NEGATIVE mg/dL (<2.0) 11/09/19 21:40 Ur Leukocyte Esterase NEGATIVE (NEGATIVE) 11/09/19 21:40 Urine WBC (Auto) 1 /HPF 11/09/19 09:20 Urine RBC (Auto) 16 /HPF 11/09/19 21:40 U Hyaline Cast (Auto) 3 /LPF 11/09/19 09:20 Urine Bacteria (Auto) TRACE /HPF 02/06/20 09:20 Squamous Epi Cells Auto 2 /HPF 11/09/19 09:20 Urine Mucus (Auto) MANY /LPF 11/09/19 21:40 Urine Ascorbic Acid 40 (NEGATIVE) H 11/09/19 21:40 Urine HCG, Qual NEGATIVE (NEGATIVE) 11/09/19 09:20 Impressions: Abdomen/Pelvis CT 11/09/19 13:08 IMPRESSION: 1. The mid to distal ileum is dilated with retention of small bowel contents and mild surrounding inflammatory change involving the terminal ileum, suspicious for distal ileal stricture leading to partial small bowel obstruction, probably associated with Crohn disease flare. There is no evidence of perforation or peritoneal abscess. 2. Appendix is normal. 3. Intrauterine device in the endometrium of the uterus. Abdomen/Pelvis CT 11/13/19 00:00 IMPRESSION: Site of small bowel dilatation on the previous study is now a lungs segment of distal ileum with bowel wall thickening but no obstruction. Proximal to the terminal ileum. Suspicious for inflammatory bowel disease, particularly Crohn's disease. Abdomen/Pelvis CT 11/14/19 00:00 IMPRESSION: Wall thickening in the terminal ileum has resolved. No acute finding in the abdomen or pelvis. Guidance Fluoroscopy 11/14/19 00:00 IMPRESSION: SUCCESSFUL PLACEMENT OF A 5 FR DUAL LUMEN 41 CM PICC IN THE LEFT BASILIC VEIN. Interventional Vascular Procedure 11/14/19 00:00 IMPRESSION: SUCCESSFUL PLACEMENT OF A 5 FR DUAL LUMEN 41 CM PICC IN THE LEFT BASILIC VEIN. PICC Line Insertion 11/14/19 00:00 IMPRESSION: SUCCESSFUL PLACEMENT OF A 5 FR DUAL LUMEN 41 CM PICC IN THE LEFT BASILIC VEIN. Stroke Is this a Stroke Patient?: No Acute Heart Failure - Is this a Heart Failure Patient?: No
[2019-11-15 16:34] VITALS: BP 131/77
== END 2019-11-15 17:00 | disposition home or self-care (01) | DRG 386 ==
LOC: ER 07:41 → EH 16:41 → 5 19:41 → 2N 11-14 10:22
PROVIDERS: ADMIT Internal Medicine; ATTEND Internal Medicine
PROC: 02HV33Z Insertion of Infusion Device into Superior Vena Cava, Percutaneous Approach (ICD-10-PCS; principal; 2019-11-14)
PROC: B548ZZA Ultrasonography of Superior Vena Cava, Guidance (ICD-10-PCS; 2019-11-14)
PROC: B518ZZA Fluoroscopy of Superior Vena Cava, Guidance (ICD-10-PCS; 2019-11-14)
DX: K50.012 Crohn's disease of small intestine with intestinal obstruction (principal); Z68.41 Body mass index [BMI] 40.0-44.9, adult; E66.01 Morbid (severe) obesity due to excess calories; T45.1X5A Adverse effect of antineoplastic and immunosuppressive drugs, initial encounter; K21.9 Gastro-esophageal reflux disease without esophagitis; M06.9 Rheumatoid arthritis, unspecified; F32.9 Major depressive disorder, single episode, unspecified; D51.9 Vitamin B12 deficiency anemia, unspecified; M79.7 Fibromyalgia; Z88.6 Allergy status to analgesic agent; Z91.011 Allergy to milk products; Z91.048 Other nonmedicinal substance allergy status; Z86.14 Personal history of Methicillin resistant Staphylococcus aureus infection
CPT/HCPCS: 36415; 36569; 74176; 74177; 76937; 77001; 80048; 80053; 81001; 81025; 83690; 83735; 85025; 85610; 85652; 86140; 87040; 96361; 96374; 96375; 96376; 99285; C1769; J1170; J1642; J1650; J1885; J2405; J2550; J2765; J2930; J3010; J3490; J7030; J7120; S0028; S0119